=== PATIENT | female | born 1985 | race Caucasian/White ===

== ENCOUNTER → 2020-04-15 09:34 | Outpatient (REF) | payer BC, SELFPAY ==
--- NOTE | 2020-04-15 | NM_ITS ---
EXAMINATION: THYROID UPTAKE AND SCAN CLINICAL INFORMATION: Thyrotoxicosis. COMPARISON: No previous radionuclide thyroid scan is available for comparison. Thyroid ultrasound dated 02/10/2020 is available for comparison. TECHNIQUE: Following the oral administration of 287 microcuries of I-123 sodium iodide, thyroid uptake was performed and expressed as a percentage of the administrated dose. Gamma scintillation camera images of the thyroid in the anterior and right and left anterior oblique views were obtained using a pinhole collimator following the administration of 10 mCi Tc-99m pertechnetate. FINDINGS: The uptake is 83.8% at 4 hours and 45.1% at 23 hours. The radioiodine uptake is markedly elevated. The higher uptake at 4 hours versus 23 hours is evidence of very rapid turnover of radioiodine in the thyroid gland. The radiopertechnetate thyroid scintigram demonstrates the thyroid gland to be mildly enlarged approximately 1 1/2 times normal in size. There is very homogeneous distribution of activity within the gland. The trapping function is markedly increased diffusely. No focal abnormalities are present. A single anterior radioiodine image obtained at the time of the 24-hour uptake measurement is similar to the radio pertechnetate image. The thyroid ultrasound dated 02/10/2020 showed a similar sized thyroid gland with increased vascularity but no nodules. IMPRESSION: Mildly enlarged diffuse toxic goiter of Graves' disease. The radioiodine uptake is markedly elevated and shows evidence of very rapid turnover of iodine in the thyroid gland. No nodules are visualized.
== END ==
LOC: HO.NUCMED 09:34
PROVIDERS: PCP Physician Assistant; Visit Provider Internal Medicine
DX: E05.90 Thyrotoxicosis, unspecified without thyrotoxic crisis or storm (principal)
CPT/HCPCS: 78014; A9512; A9516

== ENCOUNTER 2020-05-03 14:44 | Outpatient (REF) | payer BC, SELFPAY ==
[2020-05-03 16:03] LABS: Hematocrit 36.6 % (37-47); Hemoglobin 11.4 g/dl (12.0-16.0); Mean Corpuscular HGB Conc 31.1 g/dl (31.0-35.0); Mean Corpuscular Hemoglobin 24.3 pg (27.0-33.0); Mean Platelet Volume 11.6 fL (9.4-12.3); Platelet Count 299 X10*3/uL (160-400); Red Blood Count 4.69 X10*6/uL (4.20-5.50); Red Cell Distribution Width 12.5 % (11.0-16.0); White Blood Count 5.4 X10*3/uL (4.8-10.8)
[2020-05-03 16:28] LABS: Anion Gap 13 (12-20); Blood Urea Nitrogen 9 mg/dL (9-16); Calcium 8.9 mg/dL (8.4-10.2); Carbon Dioxide 24 mmol/L (22-29); Chloride 107 mmol/L (96-108); Estimated Glomerular Filt Rate > 60; Glucose Random 123 mg/dL (60-115); Iron 62 mcg/dL (30-160); Magnesium 1.8 mg/dL (1.6-2.6); Percent Iron Saturation 22 % (15-50); Potassium 4.3 mmol/l (3.3-5.1); Sodium 140 mmol/L (135-145); Total Iron Binding Capacity 276 mcg/dL (228-428); Unsaturated Iron Binding 214 ug/dL
[2020-05-03 16:39] LABS: Free T4 (Free Thyroxine) 2.27 ng/dL (0.71-1.85)
[2020-05-04 11:21] LABS: Triiodothyronine T3 Total 395 ng/dL (76-181)
== END 2020-05-03 14:45 | disposition home or self-care (01) ==
LOC: HO.LAB 14:44
PROVIDERS: PCP Physician Assistant; Referring Provider Physician Assistant; Visit Provider Internal Medicine
DX: E05.00 Thyrotoxicosis with diffuse goiter without thyrotoxic crisis or storm (principal); M79.10 Myalgia, unspecified site
CPT/HCPCS: 36415; 80048; 82550; 83540; 83735; 84439; 84480; 85027

== ENCOUNTER 2020-05-24 13:59 | Outpatient (REF) | payer BC, SELFPAY ==
[2020-05-24 15:42] LABS: Free T4 (Free Thyroxine) 0.88 ng/dL (0.71-1.85)
[2020-05-25 07:37] LABS: Triiodothyronine T3 Total 244 ng/dL (76-181)
== END 2020-05-24 14:00 | disposition home or self-care (01) ==
LOC: HO.LAB 13:59
PROVIDERS: PCP Physician Assistant; Visit Provider Internal Medicine
DX: E05.00 Thyrotoxicosis with diffuse goiter without thyrotoxic crisis or storm (principal)
CPT/HCPCS: 84439; 84480

== ENCOUNTER → 2020-06-03 10:21 | Outpatient (BNVA) | payer BC, SELFPAY | PROVIDERS: PCP Physician Assistant; Referring Provider Physician Assistant; Visit Provider Internal Medicine | DX: Z13.89 Encounter for screening for other disorder (principal) ==

== ENCOUNTER 2020-06-23 09:48 | Outpatient (REF) | payer BC, SELFPAY ==
[2020-06-23 11:51] LABS: Free T4 (Free Thyroxine) 0.53 ng/dL (0.71-1.85)
[2020-06-24 13:12] LABS: Triiodothyronine T3 Total 163 ng/dL (76-181)
== END 2020-06-23 09:49 | disposition home or self-care (01) ==
LOC: HO.LAB 09:48
PROVIDERS: PCP Physician Assistant; Visit Provider Internal Medicine
DX: E05.00 Thyrotoxicosis with diffuse goiter without thyrotoxic crisis or storm (principal)
CPT/HCPCS: 84439; 84480

== ENCOUNTER 2020-07-15 12:14 | Outpatient (REF) | payer BC, SELFPAY ==
[2020-07-15 13:56] LABS: Free T4 (Free Thyroxine) < 0.40 ng/dL (0.71-1.85); Thyroid Stimulating Hormone 0.01 uIU/mL (0.32-4.0)
[2020-07-16 07:26] LABS: Triiodothyronine T3 Total 77 ng/dL (76-181)
== END 2020-07-15 12:15 | disposition home or self-care (01) ==
LOC: HO.LAB 12:14
PROVIDERS: PCP Physician Assistant; Visit Provider Internal Medicine
DX: E05.00 Thyrotoxicosis with diffuse goiter without thyrotoxic crisis or storm (principal); E04.9 Nontoxic goiter, unspecified; E55.9 Vitamin D deficiency, unspecified
CPT/HCPCS: 84439; 84443; 84480

== ENCOUNTER 2020-07-23 10:15 | Outpatient (REF) | payer BC, SELFPAY ==
[2020-07-23 12:41] LABS: Free T4 (Free Thyroxine) < 0.40 ng/dL (0.71-1.85)
[2020-07-25 01:52] LABS: Triiodothyronine T3 Total 83 ng/dL (76-181)
== END 2020-07-23 10:16 | disposition home or self-care (01) ==
LOC: HO.LAB 10:15
PROVIDERS: PCP Physician Assistant; Visit Provider Internal Medicine
DX: E05.00 Thyrotoxicosis with diffuse goiter without thyrotoxic crisis or storm (principal)
CPT/HCPCS: 36415; 84439; 84480

== ENCOUNTER → 2020-07-28 10:00 | Outpatient (BNVA) | payer BC, SELFPAY | PROVIDERS: PCP Physician Assistant; Visit Provider Internal Medicine | DX: Z76.89 Persons encountering health services in other specified circumstances (principal) ==

== ENCOUNTER 2020-07-29 09:42 | Outpatient (REF) | payer BC, SELFPAY ==
[2020-07-29 12:14] LABS: Free T4 (Free Thyroxine) 0.48 ng/dL (0.71-1.85); Vitamin D 25-OH Total 8.5 ng/mL (>30)
[2020-07-30 05:53] LABS: Triiodothyronine T3 Total 163 ng/dL (76-181)
== END 2020-07-29 09:43 | disposition home or self-care (01) ==
LOC: HO.LAB 09:42
PROVIDERS: Absent Provider Internal Medicine; PCP Physician Assistant; Visit Provider Physician Assistant
DX: E04.9 Nontoxic goiter, unspecified (principal); E05.00 Thyrotoxicosis with diffuse goiter without thyrotoxic crisis or storm
CPT/HCPCS: 36415; 82306; 84439; 84480

== ENCOUNTER 2020-08-04 11:37 | Outpatient (REF) | payer BC, SELFPAY ==
[2020-08-04 13:58] LABS: Free T4 (Free Thyroxine) 1.18 ng/dL (0.71-1.85)
[2020-08-05 13:28] LABS: Triiodothyronine T3 Total 420 ng/dL (76-181)
== END 2020-08-04 11:38 | disposition home or self-care (01) ==
LOC: HO.LAB 11:37
PROVIDERS: PCP Physician Assistant; Visit Provider Internal Medicine
DX: E05.00 Thyrotoxicosis with diffuse goiter without thyrotoxic crisis or storm (principal)
CPT/HCPCS: 36415; 84439; 84480

== ENCOUNTER 2020-08-11 14:52 | Outpatient (REF) | payer BC, SELFPAY ==
[2020-08-11 16:11] LABS: Free T4 (Free Thyroxine) 1.42 ng/dL (0.71-1.85)
[2020-08-12 07:42] LABS: Triiodothyronine T3 Total 340 ng/dL (76-181)
== END 2020-08-11 14:53 | disposition home or self-care (01) ==
LOC: HO.LAB 14:52
PROVIDERS: PCP Physician Assistant; Visit Provider Internal Medicine
DX: E05.00 Thyrotoxicosis with diffuse goiter without thyrotoxic crisis or storm (principal)
CPT/HCPCS: 36415; 84439; 84480

== ENCOUNTER 2020-08-16 12:00 | Outpatient (REF) | payer BC, SELFPAY ==
[2020-08-16 13:39] LABS: Free T4 (Free Thyroxine) 1.88 ng/dL (0.71-1.85)
[2020-08-17 12:02] LABS: Triiodothyronine T3 Total 412 ng/dL (76-181)
== END 2020-08-16 12:01 | disposition home or self-care (01) ==
LOC: HO.LAB 12:00
PROVIDERS: PCP Physician Assistant; Visit Provider Internal Medicine
DX: E05.00 Thyrotoxicosis with diffuse goiter without thyrotoxic crisis or storm (principal)
CPT/HCPCS: 36415; 84439; 84480

== ENCOUNTER 2020-08-20 10:32 | Outpatient (REF) | payer BC, SELFPAY ==
[2020-08-20 11:37] LABS: Free T4 (Free Thyroxine) 2.16 ng/dL (0.71-1.85)
[2020-08-21 19:07] LABS: Triiodothyronine T3 Total 444 ng/dL (76-181)
== END 2020-08-20 10:33 | disposition home or self-care (01) ==
LOC: HO.LAB 10:32
PROVIDERS: PCP Physician Assistant; Visit Provider Internal Medicine
DX: E05.00 Thyrotoxicosis with diffuse goiter without thyrotoxic crisis or storm (principal)
CPT/HCPCS: 36415; 84439; 84480

== ENCOUNTER 2020-08-30 13:05 | Outpatient (REF) | payer BC, SELFPAY ==
[2020-08-30 14:36] LABS: Free T4 (Free Thyroxine) 1.78 ng/dL (0.71-1.85)
[2020-08-31 02:36] LABS: Triiodothyronine T3 Total 381 ng/dL (76-181)
== END 2020-08-30 13:06 | disposition home or self-care (01) ==
LOC: HO.LAB 13:05
PROVIDERS: PCP Physician Assistant; Visit Provider Internal Medicine
DX: E05.00 Thyrotoxicosis with diffuse goiter without thyrotoxic crisis or storm (principal)
CPT/HCPCS: 36415; 84439; 84480

== ENCOUNTER 2020-09-06 11:48 | Outpatient (REF) | payer BC, SELFPAY ==
[2020-09-06 14:03] LABS: Calcium 9.1 mg/dL (8.4-10.2)
[2020-09-06 14:29] LABS: Free T4 (Free Thyroxine) 1.48 ng/dL (0.71-1.85)
[2020-09-07 08:47] LABS: Triiodothyronine T3 Total 348 ng/dL (76-181)
== END 2020-09-06 11:49 | disposition home or self-care (01) ==
LOC: HO.LAB 11:48
PROVIDERS: Absent Provider Surgery; PCP Physician Assistant; Visit Provider Internal Medicine
DX: E05.00 Thyrotoxicosis with diffuse goiter without thyrotoxic crisis or storm (principal)
CPT/HCPCS: 36415; 82310; 84439; 84480

== ENCOUNTER 2020-09-15 14:13 | Outpatient (REF) | payer BC, SELFPAY ==
[2020-09-15 15:50] LABS: Free T4 (Free Thyroxine) 0.76 ng/dL (0.71-1.85)
[2020-09-16 06:07] LABS: Triiodothyronine T3 Total 179 ng/dL (76-181)
== END 2020-09-15 14:14 | disposition home or self-care (01) ==
LOC: HO.LAB 14:13
PROVIDERS: PCP Physician Assistant; Visit Provider Internal Medicine Endocrinology, Diabetes & Metabolism
DX: E05.00 Thyrotoxicosis with diffuse goiter without thyrotoxic crisis or storm (principal)
CPT/HCPCS: 36415; 84439; 84480

== ENCOUNTER → 2020-09-20 08:45 | Outpatient (BNVA) | payer BC, SELFPAY | PROVIDERS: PCP Physician Assistant; Visit Provider Internal Medicine ==

== ENCOUNTER 2020-09-23 14:47 | Outpatient (REF) | payer BC, SELFPAY ==
[2020-09-23 16:19] LABS: Free T4 (Free Thyroxine) 0.51 ng/dL (0.71-1.85)
[2020-09-24 09:32] LABS: Triiodothyronine T3 Total 152 ng/dL (76-181)
== END 2020-09-23 14:48 | disposition home or self-care (01) ==
LOC: HO.LAB 14:47
PROVIDERS: PCP Physician Assistant; Visit Provider Internal Medicine
DX: E05.00 Thyrotoxicosis with diffuse goiter without thyrotoxic crisis or storm (principal); E55.9 Vitamin D deficiency, unspecified
CPT/HCPCS: 36415; 84439; 84480

== ENCOUNTER 2020-10-27 06:47 | Outpatient (REF) | payer BC, SELFPAY ==
[2020-10-27 08:00] LABS: Alanine Aminotransferase 18 U/L (0-31); Albumin Level 4.3 g/dL (3.5-5.0); Alkaline Phosphatase 134 U/L (39-117); Anion Gap 12 (12-20); Aspartate Amino Transferase 19 U/L (5-31); Bilirubin Total 0.3 mg/dL (0.0-1.0); Blood Urea Nitrogen 8 mg/dL (9-16); Calcium 9.1 mg/dL (8.4-10.2); Carbon Dioxide 20 mmol/L (22-29); Chloride 110 mmol/L (96-108); Estimated Glomerular Filt Rate > 60; Glucose Random 101 mg/dL (60-115); Phosphorus 3.1 mg/dL (2.7-4.5); Potassium 4.5 mmol/L (3.3-5.1); Sodium 137 mmol/L (135-145); Total Protein 6.8 g/dL (6.5-8.0)
[2020-10-27 08:22] LABS: Free T4 (Free Thyroxine) 0.71 ng/dL (0.71-1.85); Thyroid Stimulating Hormone 0.72 uIU/mL (0.32-4.0); Vitamin D 25-OH Total 28.2 ng/mL (>30)
[2020-10-28 12:22] LABS: Calcium (PTHI) 8.9 mg/dL (8.6-10.2); PTHI 62 pg/mL (14-64)
== END 2020-10-27 06:48 | disposition home or self-care (01) ==
LOC: HO.LAB 06:47
PROVIDERS: PCP Physician Assistant; Visit Provider Internal Medicine
DX: E05.00 Thyrotoxicosis with diffuse goiter without thyrotoxic crisis or storm (principal); E89.0 Postprocedural hypothyroidism; E55.9 Vitamin D deficiency, unspecified; Z87.891 Personal history of nicotine dependence; Z79.899 Other long term (current) drug therapy
CPT/HCPCS: 36415; 80053; 82306; 83970; 84100; 84439; 84443

== ENCOUNTER 2020-12-08 07:00 | Outpatient (REF) | payer BC, SELFPAY ==
[2020-12-08 07:45] LABS: Hematocrit 40.8 % (37-47); Hemoglobin 12.6 g/dl (12.0-16.0); Mean Corpuscular HGB Conc 30.9 g/dl (31.0-35.0); Mean Corpuscular Hemoglobin 25.6 pg (27.0-33.0); Mean Corpuscular Volume 82.8 fL (80-98); Mean Platelet Volume 11.5 fL (9.4-12.3); Platelet Count 371 X10*3/uL (160-400); Red Blood Count 4.93 X10*6/uL (4.20-5.50); Red Cell Distribution Width 13.7 % (11.0-16.0); White Blood Count 6.3 X10*3/uL (4.8-10.8)
[2020-12-08 08:00] LABS: Calcium 9.1 mg/dL (8.4-10.2)
[2020-12-08 08:06] LABS: Iron 97 mcg/dL (30-160); Percent Iron Saturation 22 % (15-50); Total Iron Binding Capacity 433 mcg/dL (228-428); Unsaturated Iron Binding 336 ug/dL
[2020-12-08 08:28] LABS: Free T4 (Free Thyroxine) 0.83 ng/dL (0.71-1.85); Vitamin D 25-OH Total 30.5 ng/mL (>30)
[2020-12-08 08:29] LABS: Thyroid Stimulating Hormone 2.04 uIU/mL (0.32-4.0)
[2020-12-10 10:22] LABS: Calcium (PTHI) 9.1 mg/dL (8.6-10.2); PTHI 95 pg/mL (14-64)
== END 2020-12-08 07:01 | disposition home or self-care (01) ==
LOC: HO.LAB 07:00
PROVIDERS: Absent Provider Physician Assistant; PCP Physician Assistant; Visit Provider Internal Medicine
DX: D50.9 Iron deficiency anemia, unspecified (principal); H00.019 Hordeolum externum unspecified eye, unspecified eyelid; N92.6 Irregular menstruation, unspecified; I10 Essential (primary) hypertension; E89.0 Postprocedural hypothyroidism; E55.9 Vitamin D deficiency, unspecified
CPT/HCPCS: 36415; 82306; 82310; 83540; 83970; 84439; 84443; 85027

== ENCOUNTER → 2020-12-22 07:23 | Outpatient (BNVA) | payer BC, SELFPAY | PROVIDERS: PCP Physician Assistant; Visit Provider Internal Medicine ==

== ENCOUNTER 2021-02-02 09:37 | Outpatient (REF) | payer BC, SELFPAY ==
[2021-02-02 10:45] LABS: Albumin Level 4.5 g/dL (3.5-5.0); Calcium 9.4 mg/dL (8.4-10.2)
[2021-02-02 11:18] LABS: Thyroid Stimulating Hormone 2.15 uIU/mL (0.32-4.0)
[2021-02-02 12:12] LABS: Vitamin D 25-OH Total 35.9 ng/mL (>30)
[2021-02-03 19:45] LABS: Calcium (PTHI) 9.5 mg/dL (8.6-10.2); PTHI 76 pg/mL (14-64)
== END 2021-02-02 09:38 | disposition home or self-care (01) ==
LOC: HO.LAB 09:37
PROVIDERS: PCP Physician Assistant; Visit Provider Internal Medicine
DX: E21.3 Hyperparathyroidism, unspecified (principal); E89.0 Postprocedural hypothyroidism; E55.9 Vitamin D deficiency, unspecified
CPT/HCPCS: 36415; 82040; 82306; 82310; 83970; 84439; 84443

== ENCOUNTER → 2021-03-09 12:58 | Outpatient (BNVA) | payer OTHER, SELFPAY | PROVIDERS: PCP Physician Assistant; Visit Provider Internal Medicine ==

== ENCOUNTER 2021-04-11 14:43 | Outpatient (REF) | payer OTHER, SELFPAY ==
[2021-04-11 16:03] LABS: Hemoglobin 13.3 g/dl (12.0-16.0); Mean Corpuscular HGB Conc 32.4 g/dl (31.0-35.0); Mean Corpuscular Hemoglobin 25.8 pg (27.0-33.0); Mean Corpuscular Volume 79.5 fL (80-98); Platelet Count 277 X10*3/uL (160-400); Red Blood Count 5.16 X10*6/uL (4.20-5.50); Red Cell Distribution Width 14.6 % (11.0-16.0); White Blood Count 10.3 X10*3/uL (4.8-10.8)
[2021-04-11 16:50] LABS: TSH reflex Free T4 2.73 uIU/mL (0.32-4.0)
[2021-04-11 16:58] LABS: HCG Quantitative < 2 mIU/mL
[2021-04-12 14:59] LABS: CT PCR NOT DETECTED (Not Detect.); NG PCR NOT DETECTED (Not Detect.)
== END 2021-04-11 14:44 | disposition home or self-care (01) ==
LOC: HO.LAB 14:43
PROVIDERS: PCP Physician Assistant; Visit Provider Obstetrics & Gynecology
DX: Z01.411 Encounter for gynecological examination (general) (routine) with abnormal findings (principal); Z11.3 Encounter for screening for infections with a predominantly sexual mode of transmission; N93.9 Abnormal uterine and vaginal bleeding, unspecified
CPT/HCPCS: 36415; 84443; 84702; 85027; 87491; 87591

== ENCOUNTER 2021-04-27 14:41 | Outpatient (REF) | payer OTHER, SELFPAY ==
--- NOTE | ~2021-04-27 | US_ITS ---
EXAMINATION: US PELVIC AND TRANSVAGINAL CLINICAL INFORMATION: Abnormal uterine bleeding. LMP 04/18/2021. COMPARISON: CT abdomen/pelvis dated 07/15/2019 TECHNIQUE: Ultrasound of the pelvis is performed using both transabdominal and transvaginal transducers along with Doppler. Transvaginal imaging is performed due to inadequate visualization transabdominally. FINDINGS: Uterus: The uterus is anteverted and retroflexed and measures 8.6 x 4.9 x 5.1 cm. IUD within the endometrial cavity which obscures evaluation of the endometrium. Multiple nabothian cysts. The uterus is smooth in contour and has normal myometrial echogenicity. Right uterine body probable fibroid measuring 3 x 3 x 2.6 cm. Adnexa: Both ovaries are visualized. There is normal color-flow to the adnexa. There is no ovarian torsion. There is no pelvic ascites or fluid collection. Bilateral ovarian follicles. Right ovary measures 2.4 x 1.5 x 1.7 cm. Right ovarian volume of 3.2 mL. Left ovary measures 2.6 x 2.3 x 2.1 cm. Left ovarian volume of 6.6 mL. US/US pelvic and transvaginal IMPRESSION: 1. IUD properly located within the endometrial cavity. Endometrium not well seen. 2. Probable right uterine body fibroid measuring 3.0 cm. 3. Bilateral ovarian follicles.
== END 2021-04-27 14:42 | disposition home or self-care (01) ==
LOC: HO.US 14:41
PROVIDERS: PCP Physician Assistant; Visit Provider Obstetrics & Gynecology
DX: N93.9 Abnormal uterine and vaginal bleeding, unspecified (principal)
CPT/HCPCS: 76830; 76856

== ENCOUNTER 2021-05-05 15:10 | Outpatient (REF) | payer OTHER, SELFPAY | END 2021-05-05 15:11 | disposition home or self-care (01) | LOC: HO.LAB 15:10 | PROVIDERS: PCP Physician Assistant; Visit Provider Obstetrics & Gynecology | DX: N93.9 Abnormal uterine and vaginal bleeding, unspecified (principal) | CPT/HCPCS: 58100; 88305 ==

== ENCOUNTER 2021-05-11 15:00 | Outpatient (REF) | payer OTHER, SELFPAY | END 2021-05-11 15:01 | disposition home or self-care (01) | LOC: HO.LAB 15:00 | PROVIDERS: PCP Physician Assistant; Visit Provider Obstetrics & Gynecology | DX: N93.9 Abnormal uterine and vaginal bleeding, unspecified (principal); Z87.891 Personal history of nicotine dependence | CPT/HCPCS: 58100; 88305 ==

== ENCOUNTER → 2021-06-02 11:29 | Outpatient (BNVA) | payer OTHER, SELFPAY | PROVIDERS: PCP Physician Assistant; Visit Provider Obstetrics & Gynecology ==

== ENCOUNTER 2021-08-31 13:19 | Outpatient (REF) | payer BC, SELFPAY ==
[2021-09-01 03:31] LABS: CT PCR NOT DETECTED (Not Detect.); NG PCR NOT DETECTED (Not Detect.)
== END 2021-08-31 13:20 | disposition home or self-care (01) ==
LOC: HO.LAB 13:19
PROVIDERS: PCP Physician Assistant; Visit Provider Obstetrics & Gynecology
DX: Z30.430 Encounter for insertion of intrauterine contraceptive device (principal)
CPT/HCPCS: 58300; 58301; 87491; 87591

== ENCOUNTER 2021-08-31 13:49 | Outpatient (REF) | payer BC, SELFPAY ==
[2021-08-31 15:09] LABS: Alanine Aminotransferase 11 U/L (0-31); Albumin Level 4.7 g/dL (3.5-5.0); Alkaline Phosphatase 63 U/L (39-117); Anion Gap 13 (12-20); Aspartate Amino Transferase 17 U/L (5-31); Bilirubin Total 0.3 mg/dL (0.0-1.0); Blood Urea Nitrogen 9 mg/dL (9-16); Calcium 9.4 mg/dL (8.4-10.2); Carbon Dioxide 25 mmol/L (22-29); Chloride 104 mmol/L (96-108); Estimated Glomerular Filt Rate > 60; Glucose Random 75 mg/dL (60-115); Phosphorus 2.9 mg/dL (2.7-4.5); Sodium 138 mmol/L (135-145); Total Protein 7.5 g/dL (6.5-8.0)
[2021-08-31 15:31] LABS: Free T4 (Free Thyroxine) 0.88 ng/dL (0.71-1.85); Thyroid Stimulating Hormone 14.97 uIU/mL (0.32-4.0); Vitamin D 25-OH Total 27.1 ng/mL (>30)
[2021-09-01 15:07] LABS: Calcium (PTHI) 9.5 mg/dL (8.6-10.2); PTHI 105 pg/mL (14-64)
== END 2021-08-31 13:50 | disposition home or self-care (01) ==
LOC: HO.LAB 13:49
PROVIDERS: PCP Physician Assistant; Visit Provider Internal Medicine
DX: E89.0 Postprocedural hypothyroidism (principal); E21.3 Hyperparathyroidism, unspecified; E55.9 Vitamin D deficiency, unspecified
CPT/HCPCS: 36415; 80053; 82306; 83970; 84100; 84439; 84443

== ENCOUNTER → 2021-09-12 12:40 | Outpatient (BNVA) | payer BC, SELFPAY | PROVIDERS: PCP Physician Assistant; Visit Provider Internal Medicine ==

== ENCOUNTER → 2021-09-28 09:07 | Outpatient (BNVA) | payer BC, SELFPAY | PROVIDERS: PCP Physician Assistant; Visit Provider Obstetrics & Gynecology | DX: Z30.431 Encounter for routine checking of intrauterine contraceptive device (principal); Z87.891 Personal history of nicotine dependence | CPT/HCPCS: 99212 ==

== ENCOUNTER 2021-10-14 13:21 | Outpatient (REF) | payer BC, SELFPAY ==
[2021-10-14 14:49] LABS: Free T4 (Free Thyroxine) 1.03 ng/dL (0.71-1.85); Thyroid Stimulating Hormone 3.66 uIU/mL (0.32-4.0)
== END 2021-10-14 13:22 | disposition home or self-care (01) ==
LOC: HO.LAB 13:21
PROVIDERS: PCP Physician Assistant; Visit Provider Internal Medicine
DX: E89.0 Postprocedural hypothyroidism (principal)
CPT/HCPCS: 36415; 84439; 84443

== ENCOUNTER 2021-10-17 08:28 | Outpatient (REF) | payer BC, SELFPAY ==
[2021-10-17 09:16] LABS: Creatinine, mg/dL 35.54
[2021-10-17 13:07] LABS: Creatinine, 24Hr Urine 1.4 G/Day (1.0-2.0); Total Volume 24 Hour Urine 3950 mL
[2021-10-19 19:16] LABS: Calcium, 24 Hr Urine 336 mg/24 h; Calcium/Creatinine Ratio 224 mg/g creat (30-275)
== END 2021-10-17 08:29 | disposition home or self-care (01) ==
LOC: HO.LNP 08:28
PROVIDERS: Visit Provider Internal Medicine
DX: E21.3 Hyperparathyroidism, unspecified (principal)
CPT/HCPCS: 82340; 82570

== ENCOUNTER 2021-10-20 15:10 | Outpatient (REF) | payer BC, SELFPAY ==
--- NOTE | ~2021-10-20 | XR_ITS ---
EXAMINATION: XR HIP, RIGHT CLINICAL INFORMATION: Other unspecified enthesopathy COMPARISON: None TECHNIQUE: Two views of the right hip. FINDINGS: Bones and soft tissues are normal. No fracture. Alignment is anatomic. Hip joint space is maintained. Incidental note is made of intrauterine contraceptive device, appear in good position. XR/XR hip RT min 2V IMPRESSION: Normal right hip.
== END 2021-10-20 15:11 | disposition home or self-care (01) ==
LOC: HO.XRAY 15:10
PROVIDERS: PCP Physician Assistant; Visit Provider Physician Assistant
DX: M76.891 Other specified enthesopathies of right lower limb, excluding foot (principal)
CPT/HCPCS: 73502

== ENCOUNTER 2021-12-19 13:18 | Outpatient (REF) | payer BC, SELFPAY ==
[2021-12-19 14:13] LABS: Alanine Aminotransferase 12 U/L (0-31); Albumin Level 4.6 g/dL (3.5-5.0); Alkaline Phosphatase 55 U/L (39-117); Anion Gap 12 (12-20); Aspartate Amino Transferase 16 U/L (5-31); Bilirubin Total 0.4 mg/dL (0.0-1.0); Blood Urea Nitrogen 7 mg/dL (9-16); Calcium 9.3 mg/dL (8.4-10.2); Carbon Dioxide 25 mmol/L (22-29); Chloride 106 mmol/L (96-108); Estimated Glomerular Filt Rate > 60; Glucose Random 97 mg/dL (60-115); Phosphorus 2.6 mg/dL (2.7-4.5); Sodium 139 mmol/L (135-145); Total Protein 7.1 g/dL (6.5-8.0)
[2021-12-19 14:39] LABS: Free T4 (Free Thyroxine) 1.07 ng/dL (0.71-1.85); Thyroid Stimulating Hormone 1.08 uIU/mL (0.32-4.0); Vitamin D 25-OH Total 38.2 ng/mL (>30)
[2021-12-20 14:47] LABS: Calcium (PTHI) 9.5 mg/dL (8.6-10.2); PTHI 99 pg/mL (16-77)
== END 2021-12-19 13:19 | disposition home or self-care (01) ==
LOC: HO.LAB 13:18
PROVIDERS: PCP Physician Assistant; Visit Provider Internal Medicine
DX: E21.3 Hyperparathyroidism, unspecified (principal); E55.9 Vitamin D deficiency, unspecified; E03.9 Hypothyroidism, unspecified
CPT/HCPCS: 36415; 80053; 82306; 83970; 84100; 84439; 84443

== ENCOUNTER 2021-12-23 15:00 | Outpatient (REF) | payer BC, SELFPAY | END 2021-12-23 15:01 | disposition home or self-care (01) | LOC: HO.LAB 15:00 | PROVIDERS: PCP Physician Assistant; Visit Provider Internal Medicine | DX: Z13.89 Encounter for screening for other disorder (principal) ==

== ENCOUNTER 2021-12-26 14:18 | Outpatient (REF) | payer BC, SELFPAY ==
[2021-12-26 16:08] LABS: Creatinine, mg/dL 42.47
[2021-12-26 17:52] LABS: Creatinine, 24Hr Urine 1.5 G/Day (1.0-2.0); Total Volume 24 Hour Urine 3600 mL
[2021-12-27 17:22] LABS: Calcium, 24 Hr Urine 227 mg/24 h; Calcium/Creatinine Ratio 140 mg/g creat (30-275); Creatinine 24Hr Urine 1.62 g/24 h (0.50-2.15)
== END 2021-12-26 14:19 | disposition home or self-care (01) ==
LOC: HO.LNP 14:18
PROVIDERS: Visit Provider Internal Medicine
DX: E21.3 Hyperparathyroidism, unspecified (principal)
CPT/HCPCS: 82340; 82570

== ENCOUNTER 2021-12-30 14:00 | Outpatient (RCR) | payer BC, SELFPAY ==
--- NOTE | 2021-11-08 17:43 | MHC.PT.EP ---
[facility] [place] Office [place] Office [place] Office [address] V[address] [phone] F: [phone] F: [phone] F: [phone] F: [phone] Physical Therapy Plan of Care Date of Evaluation: Date of Surgery: N/A Diagnosis: Assessment: pt presents to physical therapy with pain, decreased range of motion, decreased strength, impaired functional mobility, impaired postural awareness, and gait deviations. pt is a good candidate for skilled PT due to age, potential remediation of impairments, typical disease/condition progression and prognosis, comorbidities, and motivation. pt would benefit from tailored strengthening and stretching exercise program, functional training, gait training, postural re-training, neuromuscular re-education, modalities as needed for pain, equipment safety demonstration. Frequency and Duration: The patient will be seen 2x/wk for 4 wks Short Term Goals: pt will be I w/ HEP to promote self-management of condition. pt will demo proper sitting posture w/ lumbar roll to promote self-management of condition. Senior Examiner Goals: pt will report a statistically significant improvement in self-reported outcome measure, LEFI, to promote return to PLOF. pt will improve B hip abduction strength to 5/5 to remediate Trendelenburg on even ground. Treatment Plan: Modalities to reduce pain, spasms and effusion. Manual therapy to restore motion and function. Therapeutic exercise to improve strength and flexibility. Neuromuscular re-education for posture and balance. Therapeutic activities to return to functional activities of daily living. Electronically signed by: Brielle Lee PT, DPT Please sign and return to therapist. Thank you for your referral.
--- NOTE | 2021-12-30 15:10 | MHC.PT.DC ---
[facility] [place] Office [place] Office [place] Office [address] Mckenzie Vickers [address] [phone] F: [phone] F: [phone] F: [phone] F: [phone] Physical Therapy Discharge Report Diagnosis: other specified enthesopathies of unspecified lower extremity Date of Surgery: N/A Date of Evaluation: 11/08/21 Date of Discharge: 12/30/21 Treatments to Date: 8 Cancellations to Date: 4 No Shows to Date: 0 Discharge Status: Improved Function Independent with HEP Discharge Summary: The patient overall reported a significant improvement in her pain. 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 We reviewed using a lumbar roll to promote neutral lumbopelvic alignment. She is independent with her home exercise program. She is discharged from this physical therapy plan of care to her home exercise program at this time. Electronically signed by: Brielle Lee PT, DPT Please sign and return to therapist. Thank you for your referral.
== END 2021-12-30 15:10 | disposition home or self-care (01) ==
LOC: HO.PT 14:00
PROVIDERS: PCP Physician Assistant; Visit Provider Physician Assistant
DX: M76.899 Other specified enthesopathies of unspecified lower limb, excluding foot (principal)
CPT/HCPCS: 97110; 97112; 97140; 97162

== ENCOUNTER 2022-02-22 10:00 | Outpatient (REF) | payer BC, SELFPAY ==
[2022-02-22 12:18] LABS: Alanine Aminotransferase 11 U/L (0-31); Alkaline Phosphatase 60 U/L (39-117); Anion Gap 16 (12-20); Aspartate Amino Transferase 14 U/L (5-31); Bilirubin Total 0.4 mg/dL (0.0-1.0); Blood Urea Nitrogen 7 mg/dL (9-16); Calcium 9.7 mg/dL (8.4-10.2); Carbon Dioxide 25 mmol/L (22-29); Chloride 104 mmol/L (96-108); Estimated Glomerular Filt Rate > 60; Glucose Random 64 mg/dL (60-115); Phosphorus 3.1 mg/dL (2.7-4.5); Potassium 4.5 mmol/L (3.3-5.1); Sodium 140 mmol/L (135-145); Total Protein 7.7 g/dL (6.5-8.0)
[2022-02-22 12:40] LABS: Free T4 (Free Thyroxine) 1.14 ng/dL (0.71-1.85); Thyroid Stimulating Hormone 2.85 uIU/mL (0.32-4.0)
[2022-02-23 11:32] LABS: Calcium (PTHI) 9.5 mg/dL (8.6-10.2); PTHI 44 pg/mL (16-77)
[2022-02-26 15:57] LABS: Vitamin D 25-OH, D2 <4 ng/mL; Vitamin D 25-OH, D3 36 ng/mL; Vitamin D 25-OH, Total 36 ng/mL (30-100)
== END 2022-02-22 10:01 | disposition home or self-care (01) ==
LOC: HO.LAB 10:00
PROVIDERS: PCP Physician Assistant; Visit Provider Internal Medicine
DX: E89.0 Postprocedural hypothyroidism (principal); E55.9 Vitamin D deficiency, unspecified; E21.3 Hyperparathyroidism, unspecified
CPT/HCPCS: 36415; 80053; 82306; 83970; 84100; 84439; 84443

== ENCOUNTER 2022-03-16 13:08 | Outpatient (REF) | payer BC, SELFPAY ==
--- NOTE | ~2022-03-16 | XR_ITS ---
EXAMINATION: XR KNEE, LEFT CLINICAL INFORMATION: Chronic instability. COMPARISON: None TECHNIQUE: AP, lateral, tunnel, and sunrise views of the left knee. FINDINGS: Bones and soft tissues are normal. No fracture or joint effusion. Alignment is anatomic. Joint spaces are well maintained. No abnormal soft tissue calcification. XR/XR knee LT 2V IMPRESSION: Normal left knee.
== END 2022-03-16 13:09 | disposition home or self-care (01) ==
LOC: HO.XRAY 13:08
PROVIDERS: PCP Physician Assistant; Visit Provider Physician Assistant
DX: M23.52 Chronic instability of knee, left knee (principal)
CPT/HCPCS: 73560

== ENCOUNTER 2022-04-13 15:03 | Outpatient (REF) | payer BC, SELFPAY | END 2022-04-13 15:04 | disposition home or self-care (01) | LOC: HO.LNP 15:03 | PROVIDERS: Visit Provider Obstetrics & Gynecology | DX: Z13.89 Encounter for screening for other disorder (principal) ==

== ENCOUNTER 2022-04-13 15:14 | Outpatient (REF) | payer BC, SELFPAY ==
[2022-04-13 15:37] LABS: Hematocrit 45.7 % (37.0-47.0); Hemoglobin 15.2 g/dl (12.0-16.0); Mean Corpuscular HGB Conc 33.3 g/dl (31.0-35.0); Mean Corpuscular Hemoglobin 28.6 pg (27.0-33.0); Mean Corpuscular Volume 85.9 fL (80.0-98.0); Mean Platelet Volume 11.7 fL (9.4-12.3); Platelet Count 283 X10*3/uL (160-400); Red Blood Count 5.32 X10*6/uL (4.20-5.50); Red Cell Distribution Width 12.3 % (11.0-16.0); White Blood Count 9.6 X10*3/uL (4.8-10.8)
[2022-04-13 16:18] LABS: HCG Quantitative < 2 mIU/mL; TSH reflex Free T4 1.66 uIU/mL (0.32-4.0)
[2022-04-14 09:18] LABS: CT PCR NOT DETECTED (Not Detect.); NG PCR NOT DETECTED (Not Detect.)
== END 2022-04-13 15:15 | disposition home or self-care (01) ==
LOC: HO.LAB 15:14
PROVIDERS: Visit Provider Obstetrics & Gynecology
DX: N93.9 Abnormal uterine and vaginal bleeding, unspecified (principal)
CPT/HCPCS: 84443; 84702; 85027; 87491; 87591

== ENCOUNTER 2022-05-12 12:52 | Outpatient (REF) | payer BC, SELFPAY ==
--- NOTE | ~2022-05-12 | US_ITS ---
EXAMINATION: US PELVIS CLINICAL INFORMATION: Abnormal uterine and vaginal bleeding. COMPARISON: Ultrasound dated 04/27/2021 TECHNIQUE: Ultrasound of the pelvis is performed using both transabdominal and transvaginal transducers along with Doppler. Transvaginal imaging is performed due to inadequate visualization transabdominally. FINDINGS: Uterus: The uterus is anteverted and measures 7.9 x 5.9 x 4.4 cm. The double wall endometrial thickness is intrauterine device is seen centered within the endometrial canal. The uterus is smooth in contour and has normal myometrial echogenicity. Uterine body fibroid measures 2.5 cm, decreased from prior study. Adnexa: Both ovaries are visualized. There is normal color flow to the adnexa. There is no ovarian torsion. Small volume free fluid. Right ovary measures 3.2 x 2.7 x 2.9 cm. Left ovary measures 3.0 x 2.2 x 2.1 cm. US/US pelvic and transvaginal IMPRESSION: 1. Intrauterine device is centered within the endometrial canal. 2. Uterine body fibroid measures 2.5 cm, decreased from prior study.
== END 2022-05-12 12:53 | disposition home or self-care (01) ==
LOC: HO.US 12:52
PROVIDERS: Visit Provider Obstetrics & Gynecology
DX: N93.9 Abnormal uterine and vaginal bleeding, unspecified (principal)
CPT/HCPCS: 76830; 76856

== ENCOUNTER 2022-05-24 08:38 | Outpatient (REF) | payer BC, SELFPAY | END 2022-05-24 08:39 | disposition home or self-care (01) | LOC: HO.LNP 08:38 | PROVIDERS: PCP Physician Assistant; Visit Provider Obstetrics & Gynecology | DX: N93.9 Abnormal uterine and vaginal bleeding, unspecified (principal) | CPT/HCPCS: 58100; 88305 ==

== ENCOUNTER 2022-06-14 19:22 | Outpatient (REF) | payer BC, SELFPAY ==
--- NOTE | ~2022-06-14 | MR_ITS ---
EXAMINATION: MR KNEE WITHOUT CONTRAST, LEFT CLINICAL INFORMATION: Medial/anterior left knee pain. COMPARISON: Left knee radiographs dated 03/16/2022. TECHNIQUE: MRI of the knee without contrast was performed using routine sequences on a high-field scanner. FINDINGS: MENISCI: MEDIAL MENISCUS: Intact. LATERAL MENISCUS: Intact. LIGAMENTS: CRUCIATE: Slight attenuation and increased T2 signal associated with the anterior cruciate ligament, which could represent normal variation versus a grade 1 sprain. No full-thickness ligament tear. Intact posterior cruciate ligament. COLLATERAL: Intact. EXTENSOR MECHANISM: Intact. ARTICULAR CARTILAGE/BONE: PATELLOFEMORAL COMPARTMENT: Normal. MEDIAL COMPARTMENT: Normal. LATERAL COMPARTMENT: Normal. JOINT FLUID AND BURSAE: Trace joint fluid and trace Mantilla's cyst. MR/MR knee LT wo con IMPRESSION: 1. Slight attenuation and increased T2 signal associated with the anterior cruciate ligament, which could represent normal variation versus a grade 1 sprain. No full-thickness ligament tear. 2. No meniscal tear. 3. Trace joint fluid and trace Mantilla's cyst.
== END 2022-06-14 19:23 | disposition home or self-care (01) ==
LOC: HO.MRI 19:22
PROVIDERS: Visit Provider Physician Assistant
DX: S83.207A Unspecified tear of unspecified meniscus, current injury, left knee, initial encounter (principal); M23.52 Chronic instability of knee, left knee
CPT/HCPCS: 73721

== ENCOUNTER → 2022-07-05 09:44 | Outpatient (BNVA) | payer BC, SELFPAY | PROVIDERS: PCP Physician Assistant; Visit Provider Physician Assistant | DX: M17.12 Unilateral primary osteoarthritis, left knee (principal) | CPT/HCPCS: 20610; J1040 ==

== ENCOUNTER 2022-07-11 14:00 | Outpatient (RCR) | payer BC, SELFPAY ==
--- NOTE | 2022-04-19 17:10 | MHC.PT.EP ---
[facility] [place] [facility] [place] Office [address] Mckenzie Vickers [address] [phone] F: [phone] F: [phone] F: [phone] F: [phone] Physical Therapy Plan of Care Date of Evaluation: Date of Surgery: Diagnosis: L knee pain and instability (presents as MCL sprain/strain) Assessment: Patient is a pleasant 37 y.o female who presents to PT with Dx of L knee pain and instability, normal x-ray of L knee, no other imaging. Her symptoms present as MCL sprain/strain, less likely meniscal injury. She has pain, limited ROM and weakness L quads, glutes which may be causing strain to medial knee. She reports difficulty with squats, prolonged walking, sleeping, getting in/out of work truck and doing heavier activities in her home. She will benefit from skilled PT to restore to PLOF. Frequency and Duration: The patient will be seen 1-2x/week for 4 weeks Short Term Goals: 2 weeks Patient demonstrates independence and consistency with HEP to self manage symptoms, reduce pain 2/10. Patient presents with increased L knee extension 0 degrees to restore to normalized gait pattern. Gate Person Goals: 4 weeks Patient presents with increased L knee flexion and extension strength 5/5 to be able to squat. Patient presents with increased L knee flexion AROM 135 degrees to be able to get in/out of work truck. Treatment Plan: Modalities to reduce pain, spasms and effusion. Manual therapy to restore motion and function. Therapeutic exercise to improve strength and flexibility. Neuromuscular re-education for posture and balance. Therapeutic activities to return to functional activities of daily living. Electronically signed by: Tracey Flores, PT, DPT Please sign and return to therapist. Thank you for your referral.
--- NOTE | 2022-08-02 16:54 | MHC.PT.DC ---
[facility] [place] Office [place] Office [place] Office [address] Mckenzie Vickers [address] [phone] F: [phone] F: [phone] F: [phone] F: [phone] Physical Therapy Discharge Report Diagnosis: L knee pain and instability (presents as MCL sprain/strain) Date of Surgery: Date of Evaluation: 04/19/22 Date of Discharge: 08/02/22 Treatments to Date: 11 Cancellations to Date: 3 No Shows to Date: 0 Discharge Status: Independent with HEP Recommend MD Follow-up Discharge Summary: The patient overall reports minimal improvement of left knee pain since starting physical therapy. She has attended approximately two months worth of visits with little change. She has tried therapeutic exercise, therapeutic activities, iontophoresis, ultrasound, and kinesiotaping treatments. She is independent with her home exercise program at this time. She is being discharged to her home exercise program at this time. I will keep her chart open for three weeks. If she has any major changes in that time she can call to schedule another appointment. Given her thyroid diagnosis I recommended she see pain management provider to determine if there are any other alternative treatment options for her. Electronically signed by: Brielle Lee PT, DPT Please sign and return to therapist. Thank you for your referral.
== END 2022-08-02 16:54 | disposition home or self-care (01) ==
LOC: HO.PT 14:00
PROVIDERS: PCP Physician Assistant; Visit Provider Physician Assistant
DX: M23.52 Chronic instability of knee, left knee (principal)
CPT/HCPCS: 97033; 97035; 97110; 97112; 97140; 97161; 97164; 97530

== ENCOUNTER 2022-07-21 11:28 | Outpatient (REF) | payer BC, SELFPAY ==
[2022-07-21 13:09] LABS: Free T4 (Free Thyroxine) 0.98 ng/dL (0.71-1.85); Thyroid Stimulating Hormone 4.23 uIU/mL (0.32-4.0)
[2022-07-22 17:45] LABS: Triiodothyronine T3 Total 77 ng/dL (76-181)
== END 2022-07-21 11:29 | disposition home or self-care (01) ==
LOC: HO.LAB 11:28
PROVIDERS: PCP Physician Assistant; Visit Provider Internal Medicine
DX: E89.0 Postprocedural hypothyroidism (principal)
CPT/HCPCS: 36415; 84439; 84443; 84480

== ENCOUNTER → 2022-07-24 14:31 | Outpatient (BNVA) | payer BC, SELFPAY | PROVIDERS: PCP Physician Assistant; Visit Provider Internal Medicine | DX: Z13.89 Encounter for screening for other disorder (principal) ==

== ENCOUNTER 2022-09-04 11:11 | Outpatient (REF) | payer BC, SELFPAY ==
[2022-09-04 12:36] LABS: Free T4 (Free Thyroxine) 1.52 ng/dL (0.71-1.85); Thyroid Stimulating Hormone 0.38 uIU/mL (0.32-4.0)
== END 2022-09-04 11:12 | disposition home or self-care (01) ==
LOC: HO.LAB 11:11
PROVIDERS: PCP Physician Assistant; Visit Provider Internal Medicine
DX: E03.9 Hypothyroidism, unspecified (principal)
CPT/HCPCS: 36415; 84439; 84443

== ENCOUNTER → 2022-09-06 08:31 | Outpatient (BNVA) | payer BC, SELFPAY | PROVIDERS: PCP Physician Assistant; Visit Provider Internal Medicine | DX: Z13.89 Encounter for screening for other disorder (principal) ==

== ENCOUNTER → 2022-09-18 12:53 | Outpatient (BNVA) | payer BC, SELFPAY | PROVIDERS: PCP Physician Assistant; Visit Provider Physician Assistant | DX: Z13.89 Encounter for screening for other disorder (principal) ==

== ENCOUNTER → 2022-10-16 14:52 | Outpatient (BNVA) | payer BC, SELFPAY | PROVIDERS: PCP Physician Assistant; Visit Provider Nurse Practitioner Family | DX: Z13.89 Encounter for screening for other disorder (principal) ==

== ENCOUNTER 2022-10-25 11:36 | Outpatient (REF) | payer BC, SELFPAY ==
[2022-10-25 13:55] LABS: Free T4 (Free Thyroxine) 1.16 ng/dL (0.71-1.85)
== END 2022-10-25 11:37 | disposition home or self-care (01) ==
LOC: HO.LAB 11:36
PROVIDERS: PCP Physician Assistant; Visit Provider Internal Medicine
DX: E89.0 Postprocedural hypothyroidism (principal)
CPT/HCPCS: 36415; 84439; 84443

== ENCOUNTER → 2022-11-13 12:42 | Outpatient (BNVA) | payer BC, SELFPAY | PROVIDERS: PCP Physician Assistant; Visit Provider Internal Medicine | DX: M25.562 Pain in left knee (principal) | CPT/HCPCS: 64447; 64450; J2795 ==

== ENCOUNTER → 2022-11-17 09:16 | Outpatient (BNVA) | payer BC, SELFPAY | PROVIDERS: PCP Physician Assistant; Visit Provider Nurse Practitioner Family ==

== ENCOUNTER 2022-12-13 05:47 | Outpatient (REF) | payer BC, SELFPAY | END 2022-12-13 05:48 | disposition home or self-care (01) | LOC: CF 05:47 | PROVIDERS: Visit Provider Internal Medicine | DX: M17.12 Unilateral primary osteoarthritis, left knee (principal) | CPT/HCPCS: 64447 ==

== ENCOUNTER → 2022-12-15 09:08 | Outpatient (BNVA) | payer BC, SELFPAY | PROVIDERS: PCP Physician Assistant; Visit Provider Nurse Practitioner Family ==

== ENCOUNTER → 2022-12-18 13:40 | Outpatient (BNVA) | payer BC, SELFPAY | PROVIDERS: PCP Physician Assistant; Visit Provider Internal Medicine ==

== ENCOUNTER 2023-03-20 14:38 | Outpatient (AMB) | payer BC, SELFPAY ==
--- NOTE | 2023-03-20 15:00 | MHC.PC.OV ---
Vital Signs 03/20/23 15:01 Height 4 ft 11 in Weight 150 lb 6 oz BMI 30.4 BP 110/68 Blood Pressure Location Lt brachial Position Sitting Pulse 93 Pulse Source Pulse Oximeter Pulse Oximetry (%) 95 Oxygen Delivery Method Room Air Intake Visit Reasons: PE Intake Note: Patient is here today for a physical. 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: Not Required per policy Accompanied by: Self / Same As Patient Allergies levothyroxine sodium [From Levoxyl] Allergy (Severe, Verified 03/20/23 15:37) Eye Swelling acetaminophen [From TYLENOL] Allergy (Unknown, Verified 03/20/23 15:37) GETS A HEADACHE levothyroxine Adverse Reaction (Intermediate, Verified 03/20/23 15:37) Hives Medication List - Last Reconciled 03/20/23 by Oskar Garcia PA-C cholecalciferol (vitamin D3) 50 mcg PO DAILY diclofenac potassium 50 mg PO BID PRN 60 days levonorgestrel (Mirena) intrauterine Synthroid (levothyroxine) 1 tab 6 days per week, half a tab 1 day per week orally daily; 30 days NS varenicline 1 mg PO BID 28 days Tobacco use date assessed: 03/20/23 Dental Screening Dental Screen Date: 03/20/23 Did you have a dental visit in the last 12 months?: No Did you have a dental problem in the last 6 months where you did not have access to dental care?: No Was dental information given to patient?: No HPI PE HPI Details Patient is a 38-y ear-old female her e today for follow -up visit.? The peter liao has a past m edical history sig nificant for Grave s disease, anxiety , vitamin-D defici ency. Left knee p atellar osteoarthr itis: Has seen mu ltiple specialists and has extensive workup including MRI which did show small effusion an d patellar arthrit is. Has gotten in jections which wer e not helpful. Guido s seen crime specialist and was advised on conser vative treatment a nd physical therap y. Tobacco depend ency: Unfortunatel y has started smok ing again and is i nterested in quitt ing again, has bee n successful with generic Chantix wh ich will restart.? She has tried Wel lbutrin was not he lpful in reducing her smoking.? She has tried nicotine patches though se ems to allergy-- > contact dermatiti s \ Hypothyroidis m: Patient has bee n seen by Endocrin ology and endocrin e surgeon and had a total thyroidect eve.? Most recent TSH has normalized since the use of Synthroid.? Seem t o have an allergy to generic levothy roxine. *Marisela zamudio has been rece ntly found to have traumatic glaucom a due to her thyro id eye disease. . . Vaccines:? 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 Storm Wesley, Denise Lim, Hi Askew and colleagues, with an educational dori from [employer]. Review of Systems Const Denies body aches, Denies chills, Denies excessive sweating, Denies fatigue, Denies fever(s) and Denies headache(s) Eyes Reports blurry vision and Reports exophthalmos ENT Denies dysphagia, Denies vertigo, Denies dizziness, Denies headache(s), Denies hearing loss and Denies tinnitus Card Denies chest pain, Denies chest pain with activity, Denies syncope, Denies irregular heart rhythm and Denies dyspnea Resp Denies chest congestion, Denies cough, Denies hemoptysis, Denies dyspnea and Denies wheezing GI Denies abdominal pain, Denies melena, Denies hematochezia, Denies coffee ground emesis, Denies dysphagia, Denies diarrhea, Denies nausea and Denies vomiting Denies urinary frequency, Denies dysuria, Denies urinary hesitancy and Denies urinary urgency Musc Details: + left knee and hip pain. Reports arthralgias, Denies limited range of motion, Denies muscle cramps and Denies muscle weakness Skin/Breast Denies rash and Denies skin ulcer Neuro Denies Abnormal speech present, Denies confusion, Denies vertigo, Denies dizziness, Denies syncope, Denies headache(s), Denies memory loss and Denies seizure-like activity Psych Denies anxiety, Denies confusion, Denies depression, Denies memory loss, Denies panic attacks and Denies paranoia Endo Denies excessive sweating, Denies fatigue, Denies flushing, Denies polydipsia and Denies polyuria Aller/Immun Denies wheezing Physical exam (Primary Care) Vital Signs: Last Vital Signs Pulse 93 03/20/23 15:01 BP 110/68 03/20/23 15:01 Pulse Ox 95 03/20/23 15:01 Oxygen Delivery Method Room Air 03/20/23 15:01 BMI result Body Mass Index 30.4 BMI Assessment/Plan discussion: High Tobacco/Smoking Status: Tobacco use Status Tobacco use date assessed 03/20/23 03/20/23 15:10 Patient Tobacco Use Status Current everyday Tobacco 03/20/23 15:10 Tobacco use type Cigarette 03/20/23 15:10 e-Cigarette/Vaping Use Never Used 09/05/23 15:10 Thrive Assessment: Date of Thrive Assessment Date Thrive assessed 10/09/22 03/20/23 15:10 Const Other: Obese General: cooperative, comfortable, no acute distress, alert and awake; No confusion Orientation/consciousness: oriented to person, oriented to place, patient oriented x3 and No confusion HENMT Head: Yes normocephalic Ears: external ears normal and TM's normal bilaterally Face and sinus: No sinus tenderness Mouth: Normal oral and palatal mucosa present and tongue normal Teeth and gingiva: dentition normal and gingiva normal Throat: Yes posterior oropharynx normal, Yes tonsils normal and Yes uvula midline Eyes Conjunctivae: conjunctivae normal Sclerae: sclerae normal Pupils: Equal, round and reactive pupils present EOM: EOMs intact bilaterally Direct Ophthalmoscopy: No no photophobia Neck Neck: Yes no lymphadenopathy, No tender and Yes no JVD Thyroid: Thyroid normal Carotids: no bruits Chest Chest palpation & inspection: no tenderness Resp Effort & Inspection: normal respiratory effort, no audible wheezes, not labored and no stridor Auscultation: no crackles, no rales, no rhonchi and no wheezes Cardio Jugular venous distension: no JVD Rate: regular rate, not bradycardic and not tachycardic Rhythm: regular rhythm Bruits: no carotid bruits Peripheral pulses: Peripheral pulses 2+ throughout GI Inspection: Yes normal to inspection, No abdominal wall ecchymosis and No visible herniation Palpation (GI): Soft to palpation, nontender, no guarding, not rigid and No hepatosplenomegaly present Auscultation: normoactive bowel sounds General: Yes no CVA tenderness Back/Spine/Pelvis Back: no CVA tenderness and No back tenderness Cervical Spine: cervical ROM normal Thoracic/Lumbar Spine: thoracic and lumbar spine normal to inspection, straight leg raise negative bilaterally, No thoraco-lumbar ROM limited and No lumbar spinal tenderness Skin Lesions: no lesions Rashes: no rashes Wounds: no wounds Neuro General: oriented to person, oriented to place, patient oriented x3, CN's II-XI intact bilaterally and No confusion Cranial nerves: Yes Equal, round and reactive pupils present and Yes Normal accommodation reflex present Cognition (Neuro): normal cognition Speech: No Abnormal speech present Gait exam (Neuro): Normal gait present Motor exam (neuro): 5/5 motor strength present throughout Extrem Right upper extremity: full ROM; no cyanosis Left upper extremity: full ROM; no cyanosis Right lower extremity: no edema Left lower extremity: no edema Psych Appearance: grossly normal Mental Status: mental status grossly normal Affect: normal affect Attitude: cooperative Thought process: Normal thought process present Assessment and Plan Assessment & Plan (1) Annual physical exam: Code(s): Z00.00 - Encounter for general adult medical examination without abnormal findings (2) Tobacco dependence: Code(s): F17.200 - Nicotine dependence, unspecified, uncomplicated Plan: She unfortunately started smoking in. Had few months being smoke free using Chantix and would like to restart this medication and continue it use. (3) Hypothyroid: Code(s): E03.9 - Hypothyroidism, unspecified Qualifiers: Hypothyroidism type: unspecified Qualified Code(s): E03.9 - Hypothyroidism, unspecified Plan: Continues to follow [place] [facility]. His status post thyroidectomy. Most recent TSH has been stable. (4) Patellofemoral arthritis of left knee: Code(s): M17.12 - Unilateral primary osteoarthritis, left knee Plan: Patient reports her knee pain is still present though is much better. Did see pain management and orthopedic whom told she had arthritis and small patellar effusion. 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 Followed by Ophthalmology here in [place]. (6) Obese: Code(s): E66.9 - Obesity, unspecified Qualifiers: Obesity type: due to excess calories Obesity classification: adult class 1 (BMI 30 - 34.9) Serious obesity comorbidity presence: without serious comorbidity Body mass index: BMI 30.0-30.9 Qualified Code(s): E66.09 - Other obesity due to excess calories; Z68.30 - Body mass index [BMI] 30.0-30.9, adult Plan: Patient does understand BMI slightly over 30 will continue working on better eating habits and trying to be more physically active to reduce her weight. 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
[2023-03-20 15:01] VITALS: BP 110/68; PULSE 93; O2SAT 95; BMI 30.4
== END 2023-03-20 15:53 | disposition home or self-care (01) ==
PROVIDERS: PCP Physician Assistant; Visit Provider Physician Assistant
DX: Z00.00 Encounter for general adult medical examination without abnormal findings (principal); F17.210 Nicotine dependence, cigarettes, uncomplicated; Z68.30 Body mass index [BMI] 30.0-30.9, adult; E03.9 Hypothyroidism, unspecified; E66.09 Other obesity due to excess calories; M17.12 Unilateral primary osteoarthritis, left knee; H40.3 Glaucoma secondary to eye trauma
CPT/HCPCS: 99395

== ENCOUNTER 2023-04-11 07:02 | Outpatient (REF) | payer BC, SELFPAY ==
[2023-04-11 08:31] LABS: Thyroid Stimulating Hormone 1.67 uIU/mL (0.32-4.0)
== END 2023-04-11 07:03 | disposition home or self-care (01) ==
LOC: HO.LAB 07:02
PROVIDERS: PCP Physician Assistant; Visit Provider Internal Medicine
DX: E03.9 Hypothyroidism, unspecified (principal)
CPT/HCPCS: 36415; 84439; 84443

== ENCOUNTER 2023-04-18 08:23 | Outpatient (AMB) | payer BC, SELFPAY ==
[2023-04-18 08:26] VITALS: BP 116/64; BMI 30.3
--- NOTE | 2023-04-18 08:26 | A.OFFVIS_ITS ---
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 No complaints. Last Pap/HPV was negative in 04/04 [facility] Medical History Thyroid eye disease Migraines Hyperparathyroidism Postoperative hypothyroidism Vitamin D deficiency Goiter Benign breast cyst in female Surgical History Hx of thyroidectomy Hx of tonsillectomy Family History Father No problems noted. 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 Cognitive needs: No Hearing needs: No Vision needs: No Female Reproductive History Menstrual Age of Menarche: 12 Date of last menstrual period: 04/03/23 Total pregnancies: 2 Number of Living Children: 0 Ab induced: 1 Ab spontaneous: 1 Date of last pap smear: 03/18/20 Review of Systems Const All systems reviewed & are unremarkable except as noted in HPI and below Card Reports as per HPI Resp Reports as per HPI GI Reports as per HPI and Reports no additional complaints Reports as per HPI Physical Exam Vital Signs: Last Vital Signs BP 116/64 04/18/23 08:26 BMI result Body Mass Index 30.3 Const General: cooperative, healthy appearing and comfortable Chest Chest palpation & inspection: normal inspection of the chest and normal palpation of entire chest wall Breast/axilla inspection: normal inspection of the breasts and normal inspection of the axillae Breast/axilla palpation: normal palpation of the breasts, normal palpation of the axillae and no axillary lymphadenopathy Resp Effort & Inspection: normal respiratory effort Auscultation: clear to auscultation bilaterally Percussion: percussion normal Cardio Palpation: normal PMI Rate: regular rate Rhythm: regular rhythm Heart sounds: no murmurs and no rubs Peripheral pulses: Peripheral pulses 2+ throughout GI Inspection: Yes normal to inspection Palpation (GI): Soft to palpation, nontender, no guarding, not rigid and No hepatosplenomegaly present Percussion: Yes normal to percussion Auscultation: normal bowel sounds Rectal Exam - Female: deferred General: Yes bladder normal to palpation External Female Exam: No lesion Speculum Exam - Vagina: normal appearance of the vagina, normal palpation, normal vaginal discharge and not erythematous Speculum Exam - Cervix: normal appearance of the cervix, normal palpation and Other cervical findings present (IUD thread in place) Bimanual exam- vagina & uterus: normal bimanual exam, normal palpation, uterine size normal, bladder normal to palpation, consistency normal and normal palpation Bimanual Exam- Adnexa, other: normal adnexae, no masses and no tenderness Assessment & Plan Assessment & Plan (1) Well woman exam: Code(s): Z01.419 - Encounter for gynecological examination (general) (routine) without abnormal findings Plan: Cotesting not indicated this. Counseled the patient about the recommended dietary allowance of 1000 mg of Calcium & 600 IU of vitamin D. The patient was instructed to perform monthly self-breast exams and to schedule an annual exam in a year; All questions answered and the patient verbalized understanding. Instructed the patient to schedule annual exam in a year Coding Level of Care Code Est Pt Prev Care 18-39y(29353) Diagnoses Well woman exam Z01.419
== END 2023-04-18 08:43 | disposition home or self-care (01) ==
PROVIDERS: PCP Physician Assistant; Visit Provider Obstetrics & Gynecology
DX: Z01.419 Encounter for gynecological examination (general) (routine) without abnormal findings (principal)
CPT/HCPCS: 99395

== ENCOUNTER → 2023-04-18 08:23 | Outpatient (BNVA) | payer BC, SELFPAY | PROVIDERS: Visit Provider Obstetrics & Gynecology ==

== ENCOUNTER 2023-04-19 15:53 | Outpatient (AMB) | payer BC, SELFPAY ==
[2023-04-19 15:56] VITALS: BP 102/80; PULSE 81; BMI 31.0
--- NOTE | 2023-04-19 15:56 | MHC.OFFVIS ---
Intake Vital Signs 04/19/23 15:56 Height 4 ft 11 in Weight 153 lb 10.595 oz BMI 31.0 BP 102/80 Blood Pressure Location Rt brachial Position Sitting Pulse 81 Pulse Source Pulse Oximeter Intake Visit Reasons: F/U Postoperative hypothyroidism-LVM Intake Note: New patient to Dr. Jerez present today for Postoperative Hypothyroidism follow up visit. Previously followed by Dr. Shepherd. 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 Patient last saw Dr. Shepherd on 12/18/2022 She noted an unexplained weight loss of 30 lbs in 1 month in mid 2019. She then noted the development of a large goiter. She presented to her PCP who ordered TFTs and a thyroid US. TSH was suppressed to <0.01 01/30/2020. The thyroid US revealed a large hypervascular heterogenous gland. She was started on Propranolol and asked to see Endocrinology. After our initial visit she underwent a full biochemical evaluation which revealed hyperthyroidism with TSH completely suppressed, and both FT4 and TT3 elevated. She had a thyroid uptake and scan 04/15/2020 which revealed increased uptake of 83.8% at 4 hours, and 45.1% at 23 hours. Uptake was markedly increased diffusely. Trapping was also markedly increased diffusely. This was consistent with Grave's disease. She was treated with Methimazole, and then underwent a total thyroidectomy with Dr. Josiah Kohler 09/28/19. Official surgical path was benign. She was started on levothyroxine postoperatively and remains on brand name synthroid 125 mcg PO 6 days per week with a half a tab 1 day per week. TSH is at goal. She reports feeling well today and has no complaints. She does mention swelling and burning in her L eye which she feels is related to the levoxyl. PTH levels were elevated. Her 24 hour urine calcium was also elevated, but this was a very large collection of almost 4 liters. She reported having minimal dairy and calcium containing foods in her diet. She increased her dietary calcium to 4 servings per day and labs normalized. She does have a history of thyroid eye disease. She has developed glaucoma and is following with both Dr. Saldana and Dr. Howard currently. Labs: Laboratory Tests 09/04/22 10/25/22 11:21 11:50 TSH 0.38 1.30 Free T4 1.52 1.16 [facility] Medical History Thyroid eye disease Migraines Hyperparathyroidism Postoperative hypothyroidism Vitamin D deficiency Goiter Benign breast cyst in female Surgical History Hx of thyroidectomy Hx of tonsillectomy Family History Father No problems noted. 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 She is currently replaced on Synthroid 125 mcg 6 days a week and half a pill 1 day a week. She appears to be clinically biochemically euthyroid. Plan is to continue the current management. At this point, patient returned to the care of her primary care provider. She returned back to endocrinology as needed Coding Level of Care Code Est Pt Level 3 (43173) Diagnoses Postoperative hypothyroidism E89.0
== END 2023-04-19 16:17 | disposition home or self-care (01) ==
PROVIDERS: PCP Physician Assistant; Visit Provider Internal Medicine Endocrinology, Diabetes & Metabolism
DX: E89.0 Postprocedural hypothyroidism (principal)
CPT/HCPCS: 99213

== ENCOUNTER → 2023-04-19 15:53 | Outpatient (BNVA) | payer BC, SELFPAY | PROVIDERS: PCP Physician Assistant; Visit Provider Internal Medicine Endocrinology, Diabetes & Metabolism ==

== ENCOUNTER 2023-09-17 13:52 | Outpatient (AMB) | payer BC, SELFPAY ==
[2023-09-17 13:56] VITALS: BP 126/74; PULSE 76; O2SAT 97; BMI 30.5
--- NOTE | 2023-09-17 13:56 | A.OFFPC_ITS ---
Vital Signs 09/17/23 13:56 Height 4 ft 11 in Weight 151 lb 4 oz BMI 30.5 BP 126/74 Blood Pressure Location Lt brachial Position Sitting Pulse 76 Pulse Source Pulse Oximeter Pulse Oximetry (%) 97 Oxygen Delivery Method Room Air Intake Visit Reasons: 6mon F/U hypothyroid and smoking. Cigar Packer Required: No Accompanied by: Self / Same As Patient Allergies levothyroxine sodium [From Levoxyl] Allergy (Severe, Verified 09/17/23 14:05) Eye Swelling acetaminophen [From TYLENOL] Allergy (Unknown, Verified 09/17/23 14:05) GETS A HEADACHE levothyroxine Adverse Reaction (Intermediate, Verified 09/17/23 14:05) Hives Medication List - Last Reconciled 09/17/23 by Oskar Garcia PA-C cholecalciferol (vitamin D3) 50 mcg PO DAILY levonorgestrel (Mirena) intrauterine Synthroid (levothyroxine) 1 tab 6 days per week, half a tab 1 day per week orally daily; 30 days NS varenicline 1 mg PO BID 90 days Tobacco use date assessed: 09/17/23 Dental Screening Dental Screen Date: 09/17/23 Did you have a dental visit in the last 12 months?: Yes Did you have a dental problem in the last 6 months where you did not have access to dental care?: No Was dental information given to patient?: Patient has dentist HPI 6mon F/U hypothyroid and smoking. HPI Details Patient is a 38-year-old female here today for follow-up visit.? The patient has a past medical history significant for Graves disease, anxiety, vitamin-D deficiency. Tobacco dependency: Unfortunately has started smoking again and is interested in quitting again, has been successful with generic Chantix has been very helpful on helping her quit smoking. Unfortunately had to be off of it for a few weeks due to insurance coverage. \ Hypothyroidism: Patient has been seen by Endocrinology and endocrine surgeon and had a total thyroidectomy.? Most recent TSH has normalized since the use of Synthroid.? Seem to have an allergy to generic levothyroxine. 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 [facility] Medical History Thyroid eye disease Migraines Hyperparathyroidism Postoperative hypothyroidism Vitamin D deficiency Goiter Benign breast cyst in female Surgical History Hx of thyroidectomy Hx of tonsillectomy Family History Father No problems noted. 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 1. Little interest or pleasure in doing things: more than half the days 2. Feeling down, depressed, or hopeless: not at all 3. Trouble falling or staying asleep, or sleeping too much: more than half the days 4. Feeling tired or having little energy: nearly every day 5. Poor appetite or overeating: not at all 6. Feeling bad about yourself - or that you are a failure or have let yourself or your family down: not at all 7. Trouble concentrating on things, such as reading the newspaper or watching television: not at all 8. Moving or speaking so slowly that other people could have noticed. Or the opposite - being so fidgety or restless that you have been moving around a lot more than usual: not at all 9. Thoughts that you would be better off or of hurting yourself in some way: not at all Total score: 7 Depression Screening Interpretation: Positive Depression Screening Follow-up: Existing condition and Declines treatment Depression Screening Done: Yes 49718 - PHQ-9 Billing: Yes Source: Developed by Drs. Storm Wesley, DeniseHi Hernandez and colleagues, with an educational dori from [employer]. Thrive Questionnaire Date Thrive assessed: 09/17/23 I am a: Patient What is your living situation today?: I have a steady place to live Within the past 12 months, did the food you bought not last and you didn't have the money to get more?: Never true Within the past 12 months, did you worry whether your food would run out before you got money to buy more?: Never true Do you have trouble paying for medicines?: No Do you have trouble getting transportation to medical appointments?: No Do you have trouble paying your heating and electricity bill?: No Do you have trouble taking care of your child, family member or friend?: No Do you have trouble with day-to-day activities such as bathing, preparing meals, shopping, managing finances, etc.?: No Are you currently unemployed and looking for a job?: No Are you interested in more education?: No Please select the resources that you would like help with: None Currently or been in a relationship where the following occur: no concerns reported THRIVE Score: 0 AUDIT C Alcohol Use Questionnaire (AUDIT-C) 1. How often do you have a drink containing alcohol?: Monthly or less 2. How many drinks containing alcohol do you have on a typical day when you are drinking?: 1 or 2 3. How often do you have six or more drinks on one occasion?: Never Total Score: 1 GRACY-7 AMB Questionnaire GRACY-7 Date GRACY - 7 assessed: 09/17/23 Feeling nervous, anxious, or on edge: 2 = More than half the days Not being able to stop or control worryin = Several days Worrying too much about different things: 1 = Several days Trouble relaxin = More than half the days Being so restless that it is hard to sit still: 2 = More than half the days Becoming easily annoyed or irritable: 3 = Nearly every day Feeling afraid as if something awful might happen: 0 = Not at all Total GRACY-7 score (0-4 normal; 5-9 mild; 10-14 moderate; 15-21 severe): 11 Source: Developed by Denise Tesfaye Kurt Kroenke and colleagues, with an educational dori from [employer]. GRACY-7 Assessment Billing GRACY-7 Assessment Tool: GRACY-7 Assessment 32844 Review of Systems Const Denies headache(s) Eyes Denies loss of vision ENT Denies vertigo, Denies dizziness, Denies headache(s) and Denies sore throat Card Denies chest pain, Denies leg edema and Denies lightheadedness Resp Denies cough, Denies hemoptysis and Denies wheezing GI Denies abdominal pain, Denies melena, Denies constipation, Denies diarrhea and Denies vomiting Denies urinary frequency, Denies dysuria and Denies urinary urgency Musc Denies arthralgias, Denies joint swelling, Denies numbness and Denies tingling Neuro Denies Abnormal speech present, Denies behavioral changes, Denies vertigo, Denies dizziness, Denies headache(s), Denies loss of vision, Denies memory loss, Denies numbness and Denies tingling Psych Denies anxiety, Denies behavioral changes, Denies depression, Denies memory loss and Denies panic attacks Daryl/Lymph Denies easy bleeding and Denies easy bruising Aller/Immun Denies wheezing Physical exam (Primary Care) Vital Signs: Last Vital Signs Pulse 76 09/17/23 13:56 BP 126/74 09/17/23 13:56 Pulse Ox 97 09/17/23 13:56 Oxygen Delivery Method Room Air 09/17/23 13:56 BMI result Body Mass Index 30.5 Tobacco/Smoking Status: Tobacco use Status Tobacco use date assessed 09/17/23 09/17/23 14:04 Patient Tobacco Use Status Current everyday Tobacco 09/17/23 13:58 Tobacco use type Cigarette 09/17/23 13:58 e-Cigarette/Vaping Use Never Used 09/17/23 13:58 Are you ready to quit: Yes Tobacco cessation counseling provided: Yes Items discussed: Nicotine replacement and QuitWorks Relapse Prevention: discussed the importance of a supportive environment, discussed negative mood or depression after quitting and discussed dietary, exercise and/or lifestyle changes Number of minutes spent counselin CPT code: 51823 - 4-10 Minutes PHQ-9: PHQ-9 Score PHQ-9: Total score 7 09/17/23 14:20 Depression Screening Interpretation: Positive Depression Screening Follow-up: Existing condition and Declines treatment Thrive Assessment: Date of Thrive Assessment Date Thrive assessed 09/17/23 09/17/23 14:04 Currently or been in a relationship where the following occur: no concerns reported Const General: healthy appearing, no acute distress, alert and awake Nutritional Appearance: well nourished Orientation/consciousness: oriented to person, oriented to place and oriented to time HENMT Ears: TM's normal bilaterally General nose exam: Normal nasal mucous membranes and turbinates present Eyes Conjunctivae: conjunctivae normal Sclerae: sclerae normal Pupils: Equal, round and reactive pupils present Neck Neck: Yes no lymphadenopathy and Yes no JVD Thyroid: Thyroid normal Carotids: no bruits Resp Effort & Inspection: normal respiratory effort and not tachypneic Auscultation: no crackles, no rales, no rhonchi and no wheezes Cardio Rate: regular rate Rhythm: regular rhythm Heart sounds: no murmurs and normal S1 and S2 GI Palpation (GI): Soft to palpation, nontender, no hepatomegaly and no splenomegaly Auscultation: normal bowel sounds Skin General skin exam: no rashes or lesions noted and dry skin Neuro General: oriented to person, oriented to place and oriented to time Cranial nerves: Yes Equal, round and reactive pupils present Speech: No Abnormal speech present Gait exam (Neuro): Normal gait present Motor exam (neuro): no tremor noted Extrem Right upper extremity: full ROM Left upper extremity: full ROM Right lower extremity: full ROM; no edema Left lower extremity: full ROM; no edema Psych Mental Status: mental status grossly normal Speech and movement: Normal speech and movement present Affect: normal affect Attitude: cooperative Thought process: Normal thought process present Assessment and Plan Assessment & Plan (1) Tobacco dependence: Code(s): F17.200 - Nicotine dependence, unspecified, uncomplicated Plan: She unfortunately started smoking again, has been using Chantix which has been helpful to help her quit smoking.. She will continue (2) Hypothyroid: Code(s): E03.9 - Hypothyroidism, unspecified Qualifiers: Hypothyroidism type: unspecified Qualified Code(s): E03.9 - Hypothyroidism, unspecified Plan: Continues to follow [place] end[facility]ology. His status post thyroidectomy. Most recent TSH has been stable. 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 Otherwise has 2020 vision. Followed by Ophthalmology here in [place]. (4) GRACY (generalized anxiety disorder): Code(s): F41.1 - Generalized anxiety disorder Plan: Patient's GRACY-7 score positive for anxiety which has been existing condition for her. Not interested in starting any new medication at this time. She attributes her anxiety and depression to the long winter months. (5) MDD (major depressive disorder), recurrent episode, moderate: Code(s): F33.1 - Major depressive disorder, recurrent, moderate Plan: Patient's PHQ9 score positive for depression which has been existing condition for her. Worsens during the winter months. Advised on sad lamp (6) Hyperparathyroidism: Code(s): E21.3 - Hyperparathyroidism, unspecified Plan: Has hyperparathyroidism. Has been stable, will continue to follow calcium. Will continue vitamin-D supplementation Orders: Orders TSH reflex Free T4 Today E03.9 - Hypothyroidism, unspecified Parathyroid Hormone Intact Today E21.3 - Hyperparathyroidism, unspecified Comprehensive [place]. Panel Fast Today Z13.1 - Encounter for screening for diabetes mellitus Coding Level of Care Code Est Pt Level 4 (46471) Diagnoses Tobacco dependence F17.200 Hypothyroidism, unspecified type E03.9 Hypothyroidism type: unspecified Glaucoma of both eyes associated with ocular trauma, moderate stage H40.33X2 Glaucoma stage: moderate stage GRACY (generalized anxiety disorder) F41.1 MDD (major depressive disorder), recurrent episode, moderate F33.1 Hyperparathyroidism E21.3 Additional Codes GRACY-7 Assessment Billing - GRACY-7 Assessment Tool: GRACY-7 Assessment [id number] ([id number]) Vital Signs *Quality* - CPT code: 68589 - 4-10 Minutes ([id number])
== END 2023-09-17 16:33 | disposition home or self-care (01) ==
PROVIDERS: PCP Physician Assistant; Visit Provider Physician Assistant
DX: E21.3 Hyperparathyroidism, unspecified (principal); F17.210 Nicotine dependence, cigarettes, uncomplicated; F33.1 Major depressive disorder, recurrent, moderate; E03.9 Hypothyroidism, unspecified; H40.3 Glaucoma secondary to eye trauma; F41.1 Generalized anxiety disorder
CPT/HCPCS: 99214; 99406

== ENCOUNTER 2023-09-26 06:27 | Outpatient (REF) | payer BC, SELFPAY ==
[2023-09-26 07:47] LABS: Alanine Aminotransferase 13 U/L (0-31); Albumin Level 4.3 g/dL (3.5-5.0); Alkaline Phosphatase 55 U/L (39-117); Anion Gap 9 (12-20); Aspartate Amino Transferase 13 U/L (5-31); Bilirubin Total 0.2 mg/dL (0.0-1.0); Blood Urea Nitrogen 11 mg/dL (9-16); Calcium 8.9 mg/dL (8.4-10.2); Carbon Dioxide 27 mmol/L (22-29); Chloride 108 mmol/L (96-108); Estimated Glomerular Filt Rate > 60; Glucose Fasting 85 mg/dL (60-99); Potassium 4.1 mmol/L (3.3-5.1); Sodium 140 mmol/L (135-145); Total Protein 6.8 g/dL (6.5-8.0)
[2023-09-26 07:48] LABS: Parathyroid Hormone Intact 99.1 pg/mL (8.7-77.1)
[2023-09-26 08:03] LABS: TSH reflex Free T4 2.19 uIU/mL (0.32-4.0)
== END 2023-09-26 06:28 | disposition home or self-care (01) ==
LOC: HO.LAB 06:27
PROVIDERS: PCP Physician Assistant; Visit Provider Physician Assistant
DX: Z13.1 Encounter for screening for diabetes mellitus (principal); E03.9 Hypothyroidism, unspecified; E21.3 Hyperparathyroidism, unspecified
CPT/HCPCS: 36415; 80053; 83970; 84443

== ENCOUNTER 2024-03-26 10:22 | Outpatient (AMB) | payer OTHER, SELFPAY ==
--- NOTE | 2024-03-26 10:42 | MHC.PC.OV ---
Vital Signs 03/26/24 10:54 Height 4 ft 11 in Weight 149 lb 2 oz BMI 30.1 BP 112/82 Blood Pressure Location Lt brachial Position Sitting Pulse 82 Pulse Source Pulse Oximeter Pulse Oximetry (%) 97 Intake Visit Reasons: Annual Exam Intake Note: Patient is here today for a physical. 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 Accompanied by: Self / Same As Patient Allergies levothyroxine sodium [From Levoxyl] Allergy (Severe, Verified 03/26/24 11:05) Eye Swelling acetaminophen [From TYLENOL] Allergy (Unknown, Verified 03/26/24 11:05) GETS A HEADACHE levothyroxine Adverse Reaction (Intermediate, Verified 03/26/24 11:05) Hives Medication List - Last Reconciled 03/26/24 by Oskar Garcia PA-C cholecalciferol (vitamin D3) 50 mcg PO DAILY levonorgestrel (Mirena) intrauterine sumatriptan succinate take 1 tab at onset of headache; if no relief, may repeat 1 tab after at least 2 hrs; max = 2 tabs/24 hrs PO 30 days Synthroid (levothyroxine) 1 tab 6 days per week, half a tab 1 day per week orally daily; 30 days NS Tobacco use date assessed: 03/26/24 Dental Screening Dental Screen Date: 09/17/23 HPI Annual Exam HPI Details Patient is a 39-year-old female here today for follow-up visit.? The patient has a past medical history significant for Graves disease, anxiety, vitamin-D deficiency. Concern--> she reports having some issues with being over emotional and over stimulated in large crowds. She is speaking with a mental health therapist at this time. She is interested in starting medication to help regulate her emotions. Tobacco dependency: Unfortunately has started smoking again and is interested in quitting again, has been successful with generic Chantix has been very helpful on helping her quit smoking. Unfortunately had to be off of it for a few weeks due to insurance coverage. \ Hypothyroidism: Patient has been seen by Endocrinology and endocrine surgeon and had a total thyroidectomy.? Most recent TSH has normalized since the use of Synthroid.? Seem to have an allergy to generic levothyroxine. 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 Vaccines:? Up-to-date with Pfizer vaccine, up-to-date with tetanus, Cocnsidering flu .. Mammo: Willing to do mammogram .. ?PHYSICAL THERAPY NURSE: does see a PHYSICAL THERAPY NURSE and gets PAPs Laboratory Tests 10/25/22 04/11/23 09/26/23 11:50 07:13 06:36 Creatinine 0.71 TSH 1.30 1.67 2.19 PTH Intact 99.1 H [facility] Medical History Migraines Thyroid eye disease Hyperparathyroidism Postoperative hypothyroidism Vitamin D deficiency Goiter Benign breast cyst in female Surgical History Hx of thyroidectomy Hx of tonsillectomy Family History Father No problems noted. Mother Cancer Substance use disorder Paternal Grandmother CVD (cardiovascular disease) Brother Substance use disorder Social History (Updated 03/26/24 @ 11:12 by Oskar Garcia PA-C) Household Members: Spouse Household Members Other:: Housing: House Alcohol intake: current Alcohol intake frequency: holidays/special occasions only Patient Tobacco Use Status: Current everyday Tobacco user Tobacco use type: Cigarette Cigarette Packs Per Day: 0.5 Cigarettes Per Day: 10 e-Cigarette/Vaping Use: Never Used Second Hand Smoke Exposure: Yes Advance Directives Date on File: 04/15/20 service: No Current occupational status: employed 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 1. Little interest or pleasure in doing things: more than half the days 2. Feeling down, depressed, or hopeless: not at all 3. Trouble falling or staying asleep, or sleeping too much: more than half the days 4. Feeling tired or having little energy: nearly every day 5. Poor appetite or overeating: nearly every day 6. Feeling bad about yourself - or that you are a failure or have let yourself or your family down: not at all 7. Trouble concentrating on things, such as reading the newspaper or watching television: not at all 8. Moving or speaking so slowly that other people could have noticed. Or the opposite - being so fidgety or restless that you have been moving around a lot more than usual: not at all 9. Thoughts that you would be better off or of hurting yourself in some way: not at all Total score: 10 Depression Screening Interpretation: Positive Depression Screening Follow-up: Existing condition, In treatment and New Medication prescribed Depression Screening Done: Yes 21835 - PHQ-9 Billing: Yes Source: Developed by Drs. Storm Wesley, Denise Lim, Hi Askew and colleagues, with an educational dori from [employer]. Thrive Questionnaire Date Thrive assessed: 03/26/24 I am a: Patient What is your living situation today?: I have a steady place to live Within the past 12 months, did the food you bought not last and you didn't have the money to get more?: Never true Within the past 12 months, did you worry whether your food would run out before you got money to buy more?: Never true Do you have trouble paying for medicines?: Yes Do you have trouble getting transportation to medical appointments?: No Do you have trouble paying your heating and electricity bill?: No Do you have trouble taking care of your child, family member or friend?: No Do you have trouble with day-to-day activities such as bathing, preparing meals, shopping, managing finances, etc.?: No Are you currently unemployed and looking for a job?: No Are you interested in more education?: No Please select the resources that you would like help with: None Currently or been in a relationship where the following occur: No concerns reported THRIVE Score: 0 AUDIT C Alcohol Use Questionnaire (AUDIT-C) 1. How often do you have a drink containing alcohol?: Monthly or less 2. How many drinks containing alcohol do you have on a typical day when you are drinking?: 1 or 2 3. How often do you have six or more drinks on one occasion?: Never Total Score: 1 GRACY-7 AMB Questionnaire GRACY-7 Date GRACY - 7 assessed: 03/26/24 Feeling nervous, anxious, or on edge: 3 = Nearly every day Not being able to stop or control worryin = Several days Worrying too much about different things: 0 = Not at all Trouble relaxin = More than half the days Being so restless that it is hard to sit still: 0 = Not at all Becoming easily annoyed or irritable: 2 = More than half the days Feeling afraid as if something awful might happen: 0 = Not at all Total GRACY-7 score (0-4 normal; 5-9 mild; 10-14 moderate; 15-21 severe): 8 Source: Developed by Drs. Storm Wesley, Denise Lim, Hi Askew and colleagues, with an educational dori from [employer]. GRACY-7 Assessment Billing GRACY-7 Assessment Tool: GRACY-7 Assessment 73016 Review of Systems Const Denies body aches, Denies chills, Denies excessive sweating, Denies fatigue, Denies fever(s) and Denies headache(s) Eyes Denies blurry vision ENT Denies dysphagia, Denies vertigo, Denies dizziness, Denies headache(s), Denies hearing loss and Denies tinnitus Card Denies chest pain, Denies chest pain with activity, Denies syncope, Denies irregular heart rhythm and Denies dyspnea Resp Denies chest congestion, Denies cough, Denies hemoptysis, Denies dyspnea and Denies wheezing GI Denies abdominal pain, Denies melena, Denies hematochezia, Denies coffee ground emesis, Denies dysphagia, Denies diarrhea, Denies nausea and Denies vomiting Denies urinary frequency, Denies dysuria, Denies urinary hesitancy and Denies urinary urgency Musc Denies arthralgias, Denies limited range of motion, Denies muscle cramps and Denies muscle weakness Skin/Breast Denies rash and Denies skin ulcer Neuro Denies Abnormal speech present, Denies confusion, Denies vertigo, Denies dizziness, Denies syncope, Denies headache(s), Denies memory loss and Denies seizure-like activity Psych Denies anxiety, Denies confusion, Denies depression, Denies memory loss, Denies panic attacks and Denies paranoia Endo Denies excessive sweating, Denies fatigue, Denies flushing, Denies polydipsia and Denies polyuria Aller/Immun Denies wheezing Physical exam (Primary Care) Vital Signs: Last Vital Signs Pulse 82 03/26/24 10:54 BP 112/82 03/26/24 10:54 Pulse Ox 97 03/26/24 10:54 BMI result Body Mass Index 30.1 Tobacco/Smoking Status: Tobacco use Status Tobacco use date assessed 03/26/24 03/26/24 10:43 Patient Tobacco Use Status Current everyday Tobacco 03/26/24 10:43 Tobacco use type Cigarette 03/26/24 10:43 e-Cigarette/Vaping Use Never Used 03/26/24 10:43 PHQ-9: PHQ-9 Score PHQ-9: Total score 10 03/26/24 11:01 Depression Screening Interpretation: Positive Depression Screening Follow-up: Existing condition, In treatment and New Medication prescribed Thrive Assessment: Date of Thrive Assessment Date Thrive assessed 03/26/24 03/26/24 10:43 Currently or been in a relationship where the following occur: No concerns reported Const General: cooperative, comfortable, no acute distress, alert and awake; No confusion Orientation/consciousness: oriented to person, oriented to place, patient oriented x3 and No confusion HENMT Head: Yes normocephalic Ears: external ears normal and TM's normal bilaterally Face and sinus: No sinus tenderness Mouth: Normal oral and palatal mucosa present and tongue normal Teeth and gingiva: dentition normal and gingiva normal Throat: Yes posterior oropharynx normal, Yes tonsils normal and Yes uvula midline Eyes Conjunctivae: conjunctivae normal Sclerae: sclerae normal Pupils: Equal, round and reactive pupils present EOM: EOMs intact bilaterally Direct Ophthalmoscopy: No no photophobia Neck Neck: Yes no lymphadenopathy, No tender and Yes no JVD Thyroid: Thyroid normal Carotids: no bruits Chest Chest palpation & inspection: no tenderness Resp Effort & Inspection: normal respiratory effort, no audible wheezes, not labored and no stridor Auscultation: no crackles, no rales, no rhonchi and no wheezes Cardio Jugular venous distension: no JVD Rate: regular rate, not bradycardic and not tachycardic Rhythm: regular rhythm Bruits: no carotid bruits Peripheral pulses: Peripheral pulses 2+ throughout GI Inspection: Yes normal to inspection, No abdominal wall ecchymosis and No visible herniation Palpation (GI): Soft to palpation, nontender, no guarding, not rigid and No hepatosplenomegaly present Auscultation: normoactive bowel sounds General: Yes no CVA tenderness Back/Spine/Pelvis Back: no CVA tenderness and No back tenderness Cervical Spine: cervical ROM normal Thoracic/Lumbar Spine: thoracic and lumbar spine normal to inspection, straight leg raise negative bilaterally, No thoraco-lumbar ROM limited and No lumbar spinal tenderness Skin Lesions: no lesions Rashes: no rashes Wounds: no wounds Neuro General: oriented to person, oriented to place, patient oriented x3, CN's II-XI intact bilaterally and No confusion Cranial nerves: Yes Equal, round and reactive pupils present and Yes Normal accommodation reflex present Cognition (Neuro): normal cognition Speech: No Abnormal speech present Gait exam (Neuro): Normal gait present Motor exam (neuro): 5/5 motor strength present throughout Extrem Right upper extremity: full ROM; no cyanosis Left upper extremity: full ROM; no cyanosis Right lower extremity: no edema Left lower extremity: no edema Psych Appearance: grossly normal Mental Status: mental status grossly normal Affect: normal affect Attitude: cooperative Thought process: Normal thought process present Assessment and Plan Assessment & Plan (1) Annual physical exam: Code(s): Z00.00 - Encounter for general adult medical examination without abnormal findings (2) Tobacco dependence: Code(s): F17.200 - Nicotine dependence, unspecified, uncomplicated Plan: She unfortunately started smoking again, has been using Chantix which has been helpful to help her quit smoking.. She will continue (3) Hypothyroid: Code(s): E03.9 - Hypothyroidism, unspecified Qualifiers: Hypothyroidism type: unspecified Qualified Code(s): E03.9 - Hypothyroidism, unspecified Plan: Continues to follow [facility] endocrinology. His status post thyroidectomy. Most recent TSH has been stable. 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 Otherwise has 2020 vision. Followed by Ophthalmology here in [facility]. (5) GRACY (generalized anxiety disorder): Code(s): F41.1 - Generalized anxiety disorder Plan: Patient's GRACY-7 score positive for anxiety which has been existing condition for her. She reports she has over emotional and does get overstimulated and emotional very easily. She is interested in starting medication at this point. Of note does have a mental health therapist she follows. (6) MDD (major depressive disorder), recurrent episode, moderate: Code(s): F33.1 - Major depressive disorder, recurrent, moderate Plan: Patient's PHQ-9 score positive for depression which has been existing condition for her. As above, patient willing to start SSRI therapy to help regulate her emotions. Will follow-up in 6 weeks to evaluate the effectiveness of the medication. (7) Hyperparathyroidism: Code(s): E21.3 - Hyperparathyroidism, unspecified Plan: Has hyperparathyroidism. Has been stable, will continue to follow calcium. Will continue vitamin-D supplementation (8) Breast cancer screening: Code(s): Z12.39 - Encounter for other screening for malignant neoplasm of breast Qualifiers: Breast cancer screening modality: mammogram Qualified Code(s): Z12.31 - Encounter for screening mammogram for malignant neoplasm of breast Orders: Orders TSH reflex Free T4 Today E03.9 - Hypothyroidism, unspecified Parathyroid Hormone Intact Today E21.3 - Hyperparathyroidism, unspecified Complete Blood Count no Diff Today Z13.1 - Encounter for screening for diabetes mellitus MM screening mammo BI Today Z12.31 - Encounter for screening mammogram for malignant neoplasm of breast, Z12.39 - Encounter for other screening for malignant neoplasm of breast Comprehensive [place]. Panel Fast Today Z13.1 - Encounter for screening for diabetes mellitus Medications: New sertraline 50 mg PO DAILY 30 days 30 tabs 1RF F41.1 - Generalized anxiety disorder Coding Level of Care Code Est Pt Prev Care 40-64y(96248) Diagnoses Annual physical exam Z00.00 Tobacco dependence F17.200 Hypothyroidism, unspecified type E03.9 Hypothyroidism type: unspecified Glaucoma of both eyes associated with ocular trauma, moderate stage H40.33X2 Glaucoma stage: moderate stage GRACY (generalized anxiety disorder) F41.1 MDD (major depressive disorder), recurrent episode, moderate F33.1 Hyperparathyroidism E21.3 Encounter for screening mammogram for malignant neoplasm of breast Z12.31 Breast cancer screening modality: mammogram Additional Codes GRACY-7 Assessment Billing - GRACY-7 Assessment Tool: GRACY-7 Assessment 43218 ([id number])
[2024-03-26 10:54] VITALS: BP 112/82; PULSE 82; O2SAT 97; BMI 30.1
== END 2024-03-26 11:29 | disposition home or self-care (01) ==
PROVIDERS: PCP Physician Assistant; Visit Provider Physician Assistant
DX: Z00.00 Encounter for general adult medical examination without abnormal findings (principal); F17.210 Nicotine dependence, cigarettes, uncomplicated; E21.3 Hyperparathyroidism, unspecified; H40.3 Glaucoma secondary to eye trauma; F41.1 Generalized anxiety disorder; F33.1 Major depressive disorder, recurrent, moderate
CPT/HCPCS: 96127; 99396

== ENCOUNTER 2024-04-04 15:10 | Outpatient (REF) | payer OTHER, SELFPAY ==
--- NOTE | ~2024-04-04 | MM_ITS ---
EXAMINATION: MM SCREENING DIGITAL BREAST TOMOSYNTHESIS, BILATERAL CLINICAL INFORMATION: Screening. Asymptomatic. COMPARISON: Mammography: Comparison is made with available priors TECHNIQUE: Digital breast mammography with tomosynthesis is performed in both the craniocaudal and mediolateral oblique views along with computer-aided detection (CAD). FINDINGS: The breasts are extremely dense, which lowers the sensitivity of mammography (ACR BI-RADS breast composition Category d). Bilateral circumscribed oval masses which wax and wane consistent with benign cysts and fibrocystic changes. Some simple cysts were seen on prior ultrasound images. There are no significant masses, abnormal calcifications, or other abnormalities. MM/MM tomosynthesis screening BI IMPRESSION: No mammographic evidence of malignancy. ASSESSMENT: BI-RADS BI-RADS 2 - Benign Findings RECOMMENDATION: Routine annual mammography screening. 1 year F/U This examination should not preclude the clinical evaluation of a suspicious palpable abnormality. This patient's information was entered into a reminder system with a target due date for their next mammogram. Electronically signed by: Luanne Mendieta DO 04/17/2024 08:37 AM EDT
== END 2024-04-04 15:11 | disposition home or self-care (01) ==
LOC: HO.MAMMO 15:10
PROVIDERS: Absent Provider Obstetrics & Gynecology; PCP Physician Assistant; Visit Provider Physician Assistant
DX: Z12.31 Encounter for screening mammogram for malignant neoplasm of breast (principal)
CPT/HCPCS: 77063; 77067

== ENCOUNTER → 2024-04-04 15:12 | Outpatient (BNV) | payer OTHER, SELFPAY | PROVIDERS: Absent Provider Obstetrics & Gynecology; PCP Physician Assistant; Visit Provider Internal Medicine | DX: Z12.31 Encounter for screening mammogram for malignant neoplasm of breast (principal) | CPT/HCPCS: 77063; 77067 ==

== ENCOUNTER 2024-04-23 08:27 | Outpatient (AMB) | payer OTHER, SELFPAY ==
--- NOTE | 2024-04-23 08:30 | A.OFFVIS_ITS ---
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 No complaints. Last Pap/HPV was negative in 04/04 Last Mammogram was BI-RADS 2 in 04/08 [facility] Medical History Migraines Thyroid eye disease Hyperparathyroidism Postoperative hypothyroidism Vitamin D deficiency Goiter Benign breast cyst in female Surgical History Hx of thyroidectomy Hx of tonsillectomy Family History Father No problems noted. 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 Cognitive needs: No Hearing needs: No Vision needs: No Female Reproductive History Menstrual Age of Menarche: 12 Date of last menstrual period: 04/12/24 control method: progestin IUCD Total pregnancies: 2 Number of Living Children: 0 Ab spontaneous: 2 Date of last pap smear: 03/18/20 Date of Mammogram: 04/04/24 Review of Systems Const All systems reviewed & are unremarkable except as noted in HPI and below Card Reports as per HPI Resp Reports as per HPI GI Reports as per HPI and Reports no additional complaints Reports as per HPI Physical Exam Vital Signs: Last Vital Signs BP 112/80 04/23/24 08:34 BMI result Body Mass Index 29.8 Const General: cooperative, healthy appearing and comfortable Chest Chest palpation & inspection: normal inspection of the chest and normal palpation of entire chest wall Breast/axilla inspection: normal inspection of the breasts and normal inspection of the axillae Breast/axilla palpation: normal palpation of the breasts, normal palpation of the axillae and no axillary lymphadenopathy Resp Effort & Inspection: normal respiratory effort Auscultation: clear to auscultation bilaterally Percussion: percussion normal Cardio Palpation: normal PMI Rate: regular rate Rhythm: regular rhythm Heart sounds: no murmurs and no rubs Peripheral pulses: Peripheral pulses 2+ throughout GI Inspection: Yes normal to inspection Palpation (GI): Soft to palpation, nontender, no guarding, not rigid and No hepatosplenomegaly present Percussion: Yes normal to percussion Auscultation: normal bowel sounds Rectal Exam - Female: deferred General: Yes bladder normal to palpation External Female Exam: No lesion Speculum Exam - Vagina: normal appearance of the vagina, normal palpation, normal vaginal discharge and not erythematous Speculum Exam - Cervix: normal appearance of the cervix and normal palpation Bimanual exam- vagina & uterus: normal bimanual exam, normal palpation, uterine size normal, bladder normal to palpation, consistency normal and normal palpation Bimanual Exam- Adnexa, other: normal adnexae, no masses and no tenderness Assessment & Plan Assessment & Plan (1) Well woman exam: Code(s): Z01.419 - Encounter for gynecological examination (general) (routine) without abnormal findings Category: Medical Plan: Cotesting not indicated this year. Instructions given to patient to schedule next screening Mammogram in 04/08. Counseled the patient about the recommended dietary allowance of 1000 mg of Calcium & 600 IU of vitamin D, the patient can not have a high intake of calcium ). The patient was instructed to perform monthly self-breast exams and to schedule an annual exam in a year; All questions answered and the patient verbalized understanding. Instructed the patient to schedule annual exam in a year Coding Level of Care Code Est Pt Prev Care 40-64y(75769) Diagnoses Well woman exam Z01.419
[2024-04-23 08:34] VITALS: BP 112/80; BMI 29.8
== END 2024-04-23 09:02 | disposition home or self-care (01) ==
PROVIDERS: PCP Physician Assistant; Visit Provider Obstetrics & Gynecology
DX: Z01.419 Encounter for gynecological examination (general) (routine) without abnormal findings (principal)
CPT/HCPCS: 99396

== ENCOUNTER → 2024-04-23 08:27 | Outpatient (BNVA) | payer OTHER, SELFPAY | PROVIDERS: PCP Physician Assistant; Visit Provider Obstetrics & Gynecology ==

== ENCOUNTER 2024-05-07 15:28 | Outpatient (AMB) | payer OTHER, SELFPAY ==
--- NOTE | 2024-05-07 15:26 | A.OFFPC_ITS ---
Intake Visit Reasons: f/u Emotions Production Support Consultant Required: No Information Interpreted: non-clinical & clinical Analytical Tech: Not Required per policy Accompanied by: Self / Same As Patient Allergies levothyroxine sodium [From Levoxyl] Allergy (Severe, Verified 05/07/24 15:52) Eye Swelling acetaminophen [From TYLENOL] Allergy (Unknown, Verified 05/07/24 15:52) GETS A HEADACHE levothyroxine Adverse Reaction (Intermediate, Verified 05/07/24 15:52) Hives Medication List - Last Reconciled 05/07/24 by Oskar Garcia PA-C cholecalciferol (vitamin D3) 50 mcg PO DAILY levonorgestrel (Mirena) intrauterine sertraline 50 mg PO DAILY 30 days sumatriptan succinate take 1 tab at onset of headache; if no relief, may repeat 1 tab after at least 2 hrs; max = 2 tabs/24 hrs PO 30 days Synthroid (levothyroxine) 1 tab 6 days per week, half a tab 1 day per week orally daily; 30 days NS Tobacco use date assessed: 03/26/24 Dental Screening Dental Screen Date: 09/17/23 HPI f/u Emotions HPI Details Patient is a 39-year-old female being evaluated today via telephone. At last visit we discussed patient's emotions and mood swings. She was willing to start SSRI therapy( sertraline 50 mg) to help her with her mood. She reports her mood is much improved on the SSRI therapy. She has not been able to cry thus would like a lower dose of the Zoloft at 25 mg. Unfortunately she still smokes and is interested in restarting generic Chantix to help her quit smoking as it has helped her in the past though insurance did not cover continued medication. [facility] Medical History Migraines Thyroid eye disease Hyperparathyroidism Postoperative hypothyroidism Vitamin D deficiency Goiter Benign breast cyst in female Surgical History Hx of thyroidectomy Hx of tonsillectomy Family History Father No problems noted. 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 Storm Wesley, Denise Lim, Hi Askew and colleagues, with an educational dori from [employer]. Review of Systems Const Denies body aches, Denies chills, Denies excessive sweating, Denies fatigue, Denies fever(s) and Denies headache(s) Eyes Denies blurry vision ENT Denies dysphagia, Denies vertigo, Denies dizziness, Denies headache(s), Denies hearing loss and Denies tinnitus Card Denies chest pain, Denies chest pain with activity, Denies syncope, Denies irregular heart rhythm and Denies dyspnea Resp Denies chest congestion, Denies cough, Denies hemoptysis, Denies dyspnea and Denies wheezing GI Denies abdominal pain, Denies melena, Denies hematochezia, Denies coffee ground emesis, Denies dysphagia, Denies diarrhea, Denies nausea and Denies vomiting Denies urinary frequency, Denies dysuria, Denies urinary hesitancy and Denies urinary urgency Musc Denies arthralgias, Denies limited range of motion, Denies muscle cramps and Denies muscle weakness Skin/Breast Denies rash and Denies skin ulcer Neuro Denies vertigo, Denies dizziness, Denies syncope, Denies headache(s), Denies memory loss and Denies seizure-like activity Psych Denies anxiety, Denies depression, Denies memory loss, Denies panic attacks and Denies paranoia Endo Denies excessive sweating, Denies fatigue, Denies flushing, Denies polydipsia and Denies polyuria Aller/Immun Denies wheezing Physical exam (Primary Care) Tobacco/Smoking Status: Tobacco use Status Tobacco use date assessed 03/26/24 05/07/24 15:27 Patient Tobacco Use Status Current everyday Tobacco 05/07/24 15:27 Tobacco use type Cigarette 05/07/24 15:27 e-Cigarette/Vaping Use Never Used 05/07/24 15:27 Are you ready to quit: Yes Tobacco cessation counseling provided: Yes Items discussed: Nicotine replacement Relapse Prevention: discussed the importance of a supportive environment, discussed negative mood or depression after quitting, weight gain after smoking is common and discussed dietary, exercise and/or lifestyle changes Number of minutes spent counselin CPT code: 41967 - 4-10 Minutes Thrive Assessment: Date of Thrive Assessment Date Thrive assessed 03/26/24 05/07/24 15:27 Telehealth Telehealth Telehealth Platform: Telephone Location of provider rendering services: practice address Location of patient: address on file Patient Identification confirmed using: Name, : Yes Telehealth method: voice only Patient verbally consented to treatment: Yes Patient verbally consented to billing insurance company: Yes Patient informed of any privacy concerns related to visit: Yes Minutes spent on Phone/Video with Pt.: 11 Coding Level of Care Code Tele Est Pt Level 3 (16248) Diagnoses MDD (major depressive disorder), recurrent episode, moderate F33.1 Tobacco dependence F17.200 Additional Codes Vital Signs *Quality* - CPT code: 98104 - 4-10 Minutes ([id number]) Assessment & Plan Assessment & Plan (1) MDD (major depressive disorder), recurrent episode, moderate: Code(s): F33.1 - Major depressive disorder, recurrent, moderate Category: Medical Plan: Patient does report significant relief of her depression and mood swings with starting sertraline. She would like to be on the lower dose of sertraline at 25 mg. Will send in script for this. Will continue long-term use of SSRI for patient's mood. (2) Tobacco dependence: Code(s): F17.200 - Nicotine dependence, unspecified, uncomplicated Category: Medical Plan: Patient continues to smoke and to is very motivated to stop smoking. She reports generic Chantix helped her quit smoking in the past. She would like a new script for generic Chantix. Medications: New sertraline 25 mg PO DAILY 90 tabs 1RF 90 days F33.1 - Major depressive disorder, recurrent, moderate varenicline 1 mg PO BID 56 tabs 3RF 28 days F17.200 - Nicotine dependence, unspecified, uncomplicated varenicline 0.5 mg PO; Take 0.5 mg qd x 3 days, then 0.5 mg b.i.d. x4 days 11 tabs 0RF 7 days F17.200 - Nicotine dependence, unspecified, uncomplicated Discontinued sertraline Discontinued Reason: Doctor's Order 50 mg PO DAILY 30 days 30 tabs 1RF F41.1 - Generalized anxiety disorder
== END 2024-05-07 16:09 | disposition home or self-care (01) ==
LOC: HO.HMCH 15:28
PROVIDERS: PCP Physician Assistant; Visit Provider Physician Assistant
DX: F33.1 Major depressive disorder, recurrent, moderate (principal); F17.200 Nicotine dependence, unspecified, uncomplicated

== ENCOUNTER → 2024-05-07 15:28 | Outpatient (BNVA) | payer OTHER, SELFPAY | PROVIDERS: PCP Physician Assistant; Visit Provider Physician Assistant ==

== ENCOUNTER 2024-09-19 06:05 | Outpatient (REF) | payer OTHER, SELFPAY ==
[2024-09-19 07:55] LABS: Hematocrit 42.1 % (37.0-47.0); Hemoglobin 13.8 g/dl (12.0-16.0); Mean Corpuscular HGB Conc 32.8 g/dl (31.0-35.0); Mean Corpuscular Volume 85.6 fL (80.0-98.0); Mean Platelet Volume 11.9 fL (9.4-12.3); Platelet Count 249 X10*3/uL (160-400); Red Blood Count 4.92 X10*6/uL (4.20-5.50); Red Cell Distribution Width 12.6 % (11.0-16.0); White Blood Count 4.8 X10*3/uL (4.8-10.8)
[2024-09-19 08:07] LABS: Parathyroid Hormone Intact 70.4 pg/mL (8.7-77.1)
[2024-09-19 08:16] LABS: Alanine Aminotransferase 28 U/L (0-31); Albumin Level 4.2 g/dL (3.5-5.0); Alkaline Phosphatase 62 U/L (39-117); Anion Gap 11 (12-20); Aspartate Amino Transferase 29 U/L (5-31); Bilirubin Total 0.3 mg/dL (0.0-1.0); Blood Urea Nitrogen 7 mg/dL (9-16); Calcium 8.8 mg/dL (8.4-10.2); Carbon Dioxide 25 mmol/L (22-29); Chloride 107 mmol/L (96-108); Estimated Glomerular Filt Rate > 60; Glucose Fasting 81 mg/dL (60-99); Potassium 3.9 mmol/L (3.3-5.1); Sodium 139 mmol/L (135-145); Total Protein 7.1 g/dL (6.5-8.0)
[2024-09-19 08:32] LABS: TSH reflex Free T4 2.39 uIU/mL (0.32-4.0)
== END 2024-09-19 06:06 | disposition home or self-care (01) ==
LOC: HO.LAB 06:05
PROVIDERS: PCP Physician Assistant; Visit Provider Physician Assistant
DX: Z13.1 Encounter for screening for diabetes mellitus (principal); E03.9 Hypothyroidism, unspecified; E21.3 Hyperparathyroidism, unspecified
CPT/HCPCS: 36415; 80053; 83970; 84443; 85027

== ENCOUNTER 2024-09-23 15:43 | Outpatient (AMB) | payer OTHER, SELFPAY ==
[2024-09-23 15:44] VITALS: BP 118/80; PULSE 81; O2SAT 96; BMI 31.3
--- NOTE | 2024-09-23 15:44 | MHC.PC.OV ---
Vital Signs 09/23/24 15:44 Height 4 ft 11 in Weight 155 lb BMI 31.3 BP 118/80 Blood Pressure Location Lt brachial Position Sitting Pulse 81 Pulse Source Pulse Oximeter Pulse Oximetry (%) 96 Oxygen Delivery Method Room Air Intake Visit Reasons: f/u hypothyroid Institute Director Required: No Accompanied by: Self / Same As Patient Allergies levothyroxine sodium [From Levoxyl] Allergy (Severe, Verified 09/23/24 16:11) Eye Swelling acetaminophen [From TYLENOL] Allergy (Unknown, Verified 09/23/24 16:11) GETS A HEADACHE levothyroxine Adverse Reaction (Intermediate, Verified 09/23/24 16:11) Hives Medication List - Last Reconciled 09/23/24 by Oskar Garcia PA-C cholecalciferol (vitamin D3) 50 mcg PO DAILY levonorgestrel (Mirena) intrauterine sertraline 25 mg PO DAILY 90 days sumatriptan succinate take 1 tab at onset of headache; if no relief, may repeat 1 tab after at least 2 hrs; max = 2 tabs/24 hrs PO 30 days Synthroid (levothyroxine) 1 tab 6 days per week, half a tab 1 day per week orally daily; 30 days NS varenicline tartrate 1 mg PO BID 28 days varenicline tartrate 0.5 mg PO; Take 0.5 mg qd x 3 days, then 0.5 mg b.i.d. x4 days 7 days Tobacco use date assessed: 09/23/24 Dental Screening Dental Screen Date: 09/23/24 Did you have a dental visit in the last 12 months?: Yes Did you have a dental problem in the last 6 months where you did not have access to dental care?: No Was dental information given to patient?: Patient has dentist HPI f/u hypothyroid HPI Details Patient is a 39-year-old female here today for follow-up visit.? The patient has a past medical history significant for Graves disease, anxiety, vitamin-D deficiency. Concern--> patient reports having a red flushed face and wonders if she has rosacea. .. Anxiety: Patient continues on sertraline 25 mg which has been offering her excellent relief of her anxiety and mood swings. Tobacco dependency: Unfortunately has started smoking again and is interested in quitting again, has been successful with generic Chantix has been very helpful on helping her quit smoking. Unfortunately had to be off of it for a few weeks due to insurance coverage. \ Hypothyroidism: Patient has been seen by Endocrinology and endocrine surgeon and had a total thyroidectomy.? Most recent TSH has normalized since the use of Synthroid.? Seem to have an allergy to generic levothyroxine. 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 [facility] Medical History Migraines Thyroid eye disease Hyperparathyroidism Postoperative hypothyroidism Vitamin D deficiency Goiter Benign breast cyst in female Surgical History Hx of thyroidectomy Hx of tonsillectomy Family History Father No problems noted. 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 1. Little interest or pleasure in doing things: several days 2. Feeling down, depressed, or hopeless: several days 3. Trouble falling or staying asleep, or sleeping too much: several days 4. Feeling tired or having little energy: several days 5. Poor appetite or overeating: not at all 6. Feeling bad about yourself - or that you are a failure or have let yourself or your family down: not at all 7. Trouble concentrating on things, such as reading the newspaper or watching television: not at all 8. Moving or speaking so slowly that other people could have noticed. Or the opposite - being so fidgety or restless that you have been moving around a lot more than usual: not at all 9. Thoughts that you would be better off or of hurting yourself in some way: not at all Total score: 4 Depression Screening Interpretation: Negative Depression Screening Done: Yes 22093 - PHQ-9 Billing: Yes Source: Developed by Drs. Storm eWsley, Denise Lim, Hi Askew and colleagues, with an educational dori from [employer]. Thrive Questionnaire Date Thrive assessed: 09/23/24 I am a: Patient What is your living situation today?: I have a steady place to live Within the past 12 months, did the food you bought not last and you didn't have the money to get more?: Never true Within the past 12 months, did you worry whether your food would run out before you got money to buy more?: Never true Do you have trouble paying for medicines?: Yes Do you have trouble getting transportation to medical appointments?: No Do you have trouble paying your heating and electricity bill?: No Do you have trouble taking care of your child, family member or friend?: No Do you have trouble with day-to-day activities such as bathing, preparing meals, shopping, managing finances, etc.?: No Are you currently unemployed and looking for a job?: No Are you interested in more education?: No Please select the resources that you would like help with: None Currently or been in a relationship where the following occur: No concerns reported THRIVE Score: 0 AUDIT C Alcohol Use Questionnaire (AUDIT-C) 1. How often do you have a drink containing alcohol?: Monthly or less 2. How many drinks containing alcohol do you have on a typical day when you are drinking?: 1 or 2 3. How often do you have six or more drinks on one occasion?: Never Total Score: 1 GRACY-7 AMB Questionnaire GRACY-7 Date GRACY - 7 assessed: 09/23/24 Feeling nervous, anxious, or on edge: 1 = Several days Not being able to stop or control worryin = Not at all Worrying too much about different things: 1 = Several days Trouble relaxin = Not at all Being so restless that it is hard to sit still: 0 = Not at all Becoming easily annoyed or irritable: 0 = Not at all Feeling afraid as if something awful might happen: 0 = Not at all Total GRACY-7 score (0-4 normal; 5-9 mild; 10-14 moderate; 15-21 severe): 2 Source: Developed by Drs. Storm Wesley, Denise Lim, Hi Askew and colleagues, with an educational dori from [employer]. GRACY-7 Assessment Billing GRACY-7 Assessment Tool: GRACY-7 Assessment 34275 Review of Systems Const Denies headache(s) Eyes Denies loss of vision ENT Denies vertigo, Denies dizziness, Denies headache(s) and Denies sore throat Card Denies chest pain, Denies leg edema and Denies lightheadedness Resp Denies cough, Denies hemoptysis and Denies wheezing GI Denies abdominal pain, Denies melena, Denies constipation, Denies diarrhea and Denies vomiting Denies urinary frequency, Denies dysuria and Denies urinary urgency Musc Denies arthralgias, Denies joint swelling, Denies numbness and Denies tingling Neuro Denies Abnormal speech present, Denies behavioral changes, Denies vertigo, Denies dizziness, Denies headache(s), Denies loss of vision, Denies memory loss, Denies numbness and Denies tingling Psych Denies anxiety, Denies behavioral changes, Denies depression, Denies memory loss and Denies panic attacks Daryl/Lymph Denies easy bleeding and Denies easy bruising Aller/Immun Denies wheezing Physical exam (Primary Care) Vital Signs: Last Vital Signs Pulse 81 09/23/24 15:44 BP 118/80 09/23/24 15:44 Pulse Ox 96 09/23/24 15:44 Oxygen Delivery Method Room Air 09/23/24 15:44 BMI result Body Mass Index 31.3 Tobacco/Smoking Status: Tobacco use Status Tobacco use date assessed 09/23/24 09/23/24 15:50 Patient Tobacco Use Status Current everyday Tobacco 09/23/24 15:50 Tobacco use type Cigarette 09/23/24 15:50 e-Cigarette/Vaping Use Never Used 09/23/24 15:50 Are you ready to quit: Yes Tobacco cessation counseling provided: Yes Items discussed: Nicotine replacement Relapse Prevention: discussed the importance of a supportive environment, discussed negative mood or depression after quitting, weight gain after smoking is common and discussed dietary, exercise and/or lifestyle changes Number of minutes spent counselin CPT code: 58275 - 4-10 Minutes PHQ-9: PHQ-9 Score PHQ-9: Total score 4 09/23/24 16:12 Depression Screening Interpretation: Negative Thrive Assessment: Date of Thrive Assessment Date Thrive assessed 09/23/24 09/23/24 15:50 Currently or been in a relationship where the following occur: No concerns reported Const General: healthy appearing, no acute distress, alert and awake Nutritional Appearance: well nourished Orientation/consciousness: oriented to person, oriented to place and oriented to time HENMT Ears: TM's normal bilaterally General nose exam: Normal nasal mucous membranes and turbinates present Eyes Conjunctivae: conjunctivae normal Sclerae: sclerae normal Pupils: Equal, round and reactive pupils present Neck Neck: Yes no lymphadenopathy and Yes no JVD Thyroid: Thyroid normal Carotids: no bruits Resp Effort & Inspection: normal respiratory effort and not tachypneic Auscultation: no crackles, no rales, no rhonchi and no wheezes Cardio Rate: regular rate Rhythm: regular rhythm Heart sounds: no murmurs and normal S1 and S2 GI Palpation (GI): Soft to palpation, nontender, no hepatomegaly and no splenomegaly Auscultation: normal bowel sounds Skin General skin exam: no rashes or lesions noted and dry skin Neuro General: oriented to person, oriented to place and oriented to time Cranial nerves: Yes Equal, round and reactive pupils present Speech: No Abnormal speech present Gait exam (Neuro): Normal gait present Motor exam (neuro): no tremor noted Extrem Right upper extremity: full ROM Left upper extremity: full ROM Right lower extremity: full ROM; no edema Left lower extremity: full ROM; no edema Psych Mental Status: mental status grossly normal Speech and movement: Normal speech and movement present Affect: normal affect Attitude: cooperative Thought process: Normal thought process present Coding Level of Care Code Est Pt Level 4 (69620) Diagnoses MDD (major depressive disorder), recurrent episode, moderate F33.1 Tobacco dependence F17.200 Hypothyroidism, unspecified type E03.9 Hypothyroidism type: unspecified Rosacea L71.9 Additional Codes PHQ-9 - 27601 - PHQ-9 Billing: Yes ([id number]) GRACY-7 Assessment Billing - GRACY-7 Assessment Tool: GRACY-7 Assessment 36767 ([id number]) Vital Signs *Quality* - CPT code: 43019 - 4-10 Minutes ([id number]) Assessment & Plan Assessment & Plan (1) MDD (major depressive disorder), recurrent episode, moderate: Code(s): F33.1 - Major depressive disorder, recurrent, moderate Category: Medical Plan: Patient does report significant relief of her depression and mood swings with starting sertraline. She would like to be on the lower dose of sertraline at 25 mg. Will send in script for this. Will continue long-term use of SSRI for patient's mood. (2) Tobacco dependence: Code(s): F17.200 - Nicotine dependence, unspecified, uncomplicated Category: Medical Plan: Patient continues to smoke and to is very motivated to stop smoking. She reports generic Chantix helped her quit smoking in the past. She is going to try Chantix again to help her quit smoking. (3) Hypothyroid: Code(s): E03.9 - Hypothyroidism, unspecified Category: Medical Qualifiers: Hypothyroidism type: unspecified Qualified Code(s): E03.9 - Hypothyroidism, unspecified Plan: Patient's most recent TSH stable. Will continue her current dose of levothyroxine. (4) Rosacea: Code(s): L71.9 - Rosacea, unspecified Category: Medical Plan: Patient appears to have had flushed face and will try metronidazole gel. If treatment fails will consider Dermatology evaluation and treatment. Orders: Orders Comprehensive [place]. Panel Fast 09/23/24 E03.9 - Hypothyroidism, unspecified TSH reflex Free T4 09/23/24 E03.9 - Hypothyroidism, unspecified Medications: New metronidazole 1% 1 appl topical BID 60 grams 0RF 30 days L71.9 - Rosacea, unspecified Discontinued varenicline tartrate Discontinued Reason: Doctor's Order 0.5 mg PO; Take 0.5 mg qd x 3 days, then 0.5 mg b.i.d. x4 days 7 days 11 tabs 0RF F17.200 - Nicotine dependence, unspecified, uncomplicated
== END 2024-09-23 16:28 | disposition home or self-care (01) ==
LOC: HO.HMCH 15:43
PROVIDERS: PCP Physician Assistant; Visit Provider Physician Assistant
DX: F33.1 Major depressive disorder, recurrent, moderate (principal); F17.200 Nicotine dependence, unspecified, uncomplicated; E03.9 Hypothyroidism, unspecified; L71.9 Rosacea, unspecified

== ENCOUNTER → 2024-09-23 15:43 | Outpatient (BNVA) | payer OTHER, SELFPAY | PROVIDERS: PCP Physician Assistant; Visit Provider Physician Assistant | DX: F33.1 Major depressive disorder, recurrent, moderate (principal); E03.9 Hypothyroidism, unspecified; L71.9 Rosacea, unspecified; Z79.899 Other long term (current) drug therapy; F17.210 Nicotine dependence, cigarettes, uncomplicated | CPT/HCPCS: 96127 ==

== ENCOUNTER 2025-04-01 13:18 | Outpatient (AMB) | payer OTHER, SELFPAY ==
--- NOTE | 2025-04-01 13:25 | MHC.PC.OV ---
Vital Signs 04/01/25 13:26 Height 4 ft 11 in Weight 159 lb 2 oz BMI 32.1 BP 120/80 Blood Pressure Location Lt brachial Position Sitting Pulse 92 Pulse Source Pulse Oximeter Temp 97.3 F Temp Source Temporal Artery Scan Pulse Oximetry (%) 95 Oxygen Delivery Method Room Air Intake Visit Reasons: Annual exam Intake Note: Patient is here today for a physical. Dough Maker Required: No Agricultural Plow Operator: Not Required per policy Accompanied by: Self / Same As Patient Allergies levothyroxine sodium (From Levoxyl) Allergy (Severe, Verified 04/01/25 13:50) Eye Swelling acetaminophen (From TYLENOL) Allergy (Unknown, Verified 04/01/25 13:50) GETS A HEADACHE levothyroxine Adverse Reaction (Intermediate, Verified 04/01/25 13:50) Hives metronidazole (From Metrogel) Adverse Reaction (Intermediate, Verified 04/01/25 13:58) SKin breakout Medication List - Last Reconciled 04/01/25 by Oskar Garcia PA-C cholecalciferol (vitamin D3) 50 mcg PO DAILY levonorgestrel (Mirena) intrauterine sertraline 25 mg PO DAILY 90 days sumatriptan succinate take 1 tab at onset of headache; if no relief, may repeat 1 tab after at least 2 hrs; max = 2 tabs/24 hrs PO 30 days Synthroid (levothyroxine) 1 tab 6 days per week, half a tab 1 day per week orally daily; 30 days NS varenicline tartrate 1 mg PO BID 28 days Tobacco use date assessed: 04/01/25 Dental Screening Dental Screen Date: 09/23/24 [facility] Annual exam HPI Details Patient is a 40-year-old female here today for routine annual physical.? The patient has a past medical history significant for Graves disease, anxiety, vitamin-D deficiency. Concern--> . The patient reports a history of rosacea, for which she was prescribed Metrogel. She experienced adverse reactions to the gel, including significant skin breakouts, and has discontinued its use. Alternative treatments such as azelaic acid are being considered Also Tosin has been experiencing persistent fatigue for the past one to two weeks, which is affecting her daily activities. She denies any respiratory symptoms or sleep disturbances, except for occasional snoring when consuming alcohol. Her menstrual periods are irregular due to an IUD, but she reports a significant reduction in menstrual flow compared to before the IUD placement. The patient is also dealing with a grief reaction following the recent of her grandmother, with whom she was very close. She acknowledges the emotional toll this has taken on her and is open to counseling to help manage her grief. .. Anxiety: Patient continues on sertraline 25 mg which has been offering her excellent relief of her anxiety and mood swings. Tobacco dependency: Unfortunately has started smoking again and is interested in quitting again, has been successful with generic Chantix has been very helpful on helping her quit smoking. Unfortunately had to be off of it for a few weeks due to insurance coverage. \ Hypothyroidism: Patient has been seen by Endocrinology and endocrine surgeon and had a total thyroidectomy.? Most recent TSH has normalized since the use of Synthroid.? Seem to have an allergy to generic levothyroxine. 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 Vaccines:? Up-to-date with Pfizer vaccine, up-to-date with tetanus, considering flu vacc .. Mammo: Mammogram done in March 2024, BI-RADS 1, needs repeat mammo .. 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 1. Little interest or pleasure in doing things: not at all 2. Feeling down, depressed, or hopeless: not at all 3. Trouble falling or staying asleep, or sleeping too much: nearly every day 4. Feeling tired or having little energy: nearly every day 5. Poor appetite or overeating: not at all 6. Feeling bad about yourself - or that you are a failure or have let yourself or your family down: not at all 7. Trouble concentrating on things, such as reading the newspaper or watching television: not at all 8. Moving or speaking so slowly that other people could have noticed. Or the opposite - being so fidgety or restless that you have been moving around a lot more than usual: not at all 9. Thoughts that you would be better off or of hurting yourself in some way: not at all Total score: 6 Depression Screening Interpretation: Positive Depression Screening Follow-up: Existing condition and Follow-up Visit Requested Depression Screening Done: Yes 74039 - PHQ-9 Billing: Yes Source: Developed by Drs. Storm Wesley, Denise Lim, Hi Askew and colleagues, with an educational dori from [employer]. Thrive Questionnaire Date Thrive assessed: 03/25/25 I am a: Patient What is your living situation today?: I have a steady place to live Within the past 12 months, did the food you bought not last and you didn't have the money to get more?: Never true Within the past 12 months, did you worry whether your food would run out before you got money to buy more?: Never true Do you have trouble paying for medicines?: No Do you have trouble getting transportation to medical appointments?: No Do you have trouble paying your heating and electricity bill?: No Do you have trouble taking care of your child, family member or friend?: No Do you have trouble with day-to-day activities such as bathing, preparing meals, shopping, managing finances, etc.?: No Are you currently unemployed and looking for a job?: No Are you interested in more education?: No Please select the resources that you would like help with: None Currently or been in a relationship where the following occur: No concerns reported THRIVE Score: 0 AUDIT C Alcohol Use Questionnaire (AUDIT-C) 1. How often do you have a drink containing alcohol?: Monthly or less Total Score: 1 GRACY-7 AMB Questionnaire GRACY-7 Date GRACY - 7 assessed: 09/23/24 Feeling nervous, anxious, or on edge: 1 = Several days Not being able to stop or control worryin = Several days Worrying too much about different things: 1 = Several days Trouble relaxin = Several days Being so restless that it is hard to sit still: 0 = Not at all Becoming easily annoyed or irritable: 1 = Several days Feeling afraid as if something awful might happen: 0 = Not at all Total GRACY-7 score (0-4 normal; 5-9 mild; 10-14 moderate; 15-21 severe): 5 Source: Developed by Drs. Storm Wesley, Denise Lim, Hi Askew and colleagues, with an educational dori from [employer]. GRACY-7 Assessment Billing GRACY-7 Assessment Tool: GRACY-7 Assessment 53235 Physical exam (Primary Care) Vital Signs: Last Vital Signs Temp 97.3 F 04/01/25 13:26 Pulse 92 04/01/25 13:26 BP 120/80 04/01/25 13:26 Pulse Ox 95 04/01/25 13:26 Oxygen Delivery Method Room Air 04/01/25 13:26 BMI result Body Mass Index 32.1 Tobacco/Smoking Status: Tobacco use Status Tobacco use date assessed 04/01/25 04/01/25 13:33 Patient Tobacco Use Status Current everyday Tobacco 04/01/25 13:32 Tobacco use type Cigarette 04/01/25 13:32 e-Cigarette/Vaping Use Never Used 04/01/25 13:32 PHQ-9: PHQ-9 Score PHQ-9: Total score 6 04/01/25 13:48 Depression Screening Interpretation: Positive Depression Screening Follow-up: Existing condition and Follow-up Visit Requested Thrive Assessment: Date of Thrive Assessment Date Thrive assessed 03/25/25 04/01/25 13:25 Currently or been in a relationship where the following occur: No concerns reported Coding Level of Care Code Est Pt Level 4 (93378) Diagnoses Annual physical exam Z00.00 MDD (major depressive disorder), recurrent episode, moderate F33.1 Tobacco dependence F17.200 Hypothyroidism, unspecified type E03.9 Hypothyroidism type: unspecified Rosacea L71.9 Fatigue, unspecified type R53.83 Fatigue type: unspecified Additional Codes PHQ-9 - 70635 - PHQ-9 Billing: Yes ([id number]) GRACY-7 Assessment Billing - GRACY-7 Assessment Tool: GRACY-7 Assessment 07870 ([id number]) Assessment & Plan Assessment & Plan (1) Annual physical exam: Code(s): Z00.00 - Encounter for general adult medical examination without abnormal findings Category: Medical Plan: As per HPI (2) MDD (major depressive disorder), recurrent episode, moderate: Code(s): F33.1 - Major depressive disorder, recurrent, moderate Category: Medical Plan: PHQ-9 score positive for depression which has been existing condition for her.. Of she reports losing her grandmother recently she was close to. She continues on sertraline 25 mg which has been working well for her over the past 6 months.. She reports her grandmother recently in his dealing with a bit of grief which may be causing some of the fatigue. She is interested in speaking with a mental health therapist (3) Tobacco dependence: Code(s): F17.200 - Nicotine dependence, unspecified, uncomplicated Category: Medical Plan: Unfortunately smoking nearly a pack a day again, she reports her grandmother in now smoking a bit more. She is interested in returning back to [facility] which has helped her quit smoking in the past. (4) Hypothyroid: Code(s): E03.9 - Hypothyroidism, unspecified Category: Medical Qualifiers: Hypothyroidism type: unspecified Qualified Code(s): E03.9 - Hypothyroidism, unspecified Plan: Patient's most recent TSH stable. Will continue her current dose of levothyroxine. (5) Rosacea: Code(s): L71.9 - Rosacea, unspecified Category: Medical Plan: Due to adverse reactions to Metrogel, alternative treatments such as azelaic acid are being considered. A referral to a returning officer is suggested if symptoms persist. (6) Fatigue: Code(s): R53.83 - Other fatigue Category: Medical Qualifiers: Fatigue type: unspecified Qualified Code(s): R53.83 - Other fatigue Plan: Laboratory tests are ordered to assess thyroid function, vitamin levels, and iron status to identify potential causes of fatigue. Counseling is recommended to address potential emotional factors contributing to fatigue. Orders: Orders Vitamin B12 and Folate 04/01/25 E53.8 - Deficiency of other specified B group vitamins, R53.83 - Other fatigue Vitamin D 25-OH Total 04/01/25 R53.83 - Other fatigue MM screening mammo BI 04/01/25 Z12.31 - Encounter for screening mammogram for malignant neoplasm of breast Lipid Panel 04/01/25 E03.9 - Hypothyroidism, unspecified, F17.200 - Nicotine dependence, unspecified, uncomplicated Referrals Counseling Referral F33.1 - Major depressive disorder, recurrent, moderate Medications: New azelaic acid 15% 1 appl topical BID 50 grams 0RF 6 weeks L71.9 - Rosacea, unspecified Refilled varenicline tartrate 1 mg PO BID 56 tabs 3RF 28 days F17.200 - Nicotine dependence, unspecified, uncomplicated
[2025-04-01 13:26] VITALS: BP 120/80; PULSE 92; TEMP 36.3; O2SAT 95; BMI 32.1
== END 2025-04-01 14:28 | disposition home or self-care (01) ==
LOC: HO.HMCH 13:19
PROVIDERS: PCP Physician Assistant; Visit Provider Physician Assistant
DX: Z00.00 Encounter for general adult medical examination without abnormal findings (principal); F33.1 Major depressive disorder, recurrent, moderate; F17.200 Nicotine dependence, unspecified, uncomplicated; E03.9 Hypothyroidism, unspecified; L71.9 Rosacea, unspecified; R53.83 Other fatigue

== ENCOUNTER → 2025-04-01 13:18 | Outpatient (BNVA) | payer OTHER, SELFPAY | PROVIDERS: PCP Physician Assistant; Visit Provider Physician Assistant | DX: Z00.00 Encounter for general adult medical examination without abnormal findings (principal); F41.9 Anxiety disorder, unspecified; E03.9 Hypothyroidism, unspecified; F17.210 Nicotine dependence, cigarettes, uncomplicated; F33.1 Major depressive disorder, recurrent, moderate; L71.9 Rosacea, unspecified; E53.8 Deficiency of other specified B group vitamins; Z63.4 Disappearance and death of family member | CPT/HCPCS: 96127 ==

== ENCOUNTER 2025-04-04 07:02 | Outpatient (REF) | payer OTHER, SELFPAY ==
[2025-04-04 09:14] LABS: Alanine Aminotransferase 20 U/L (0-31); Albumin Level 4.8 g/dL (3.5-5.0); Alkaline Phosphatase 60 U/L (39-117); Anion Gap 10 (12-20); Aspartate Amino Transferase 20 U/L (5-31); Blood Urea Nitrogen 10 mg/dL (9-16); Calcium 8.8 mg/dL (8.4-10.2); Carbon Dioxide 26 mmol/L (22-29); Chloride 109 mmol/L (96-108); Cholesterol 199 mg/dL (<200); Estimated Glomerular Filt Rate > 60; HDL Cholesterol 48 mg/dL (>40); Potassium 4.2 mmol/L (3.3-5.1); Sodium 141 mmol/L (135-145); Total Protein 7.2 g/dL (6.5-8.0); Triglycerides 128 mg/dL (<150)
[2025-04-04 09:33] LABS: Folate 5.5 ng/mL (> or = 4.0); Vitamin B12 221 pg/mL (200-900)
[2025-04-04 10:12] LABS: Free T4 (Free Thyroxine) 0.88 ng/dL (0.71-1.85)
== END 2025-04-04 07:03 | disposition home or self-care (01) ==
LOC: HO.LAB 07:02
PROVIDERS: PCP Physician Assistant; Visit Provider Physician Assistant
DX: E53.8 Deficiency of other specified B group vitamins (principal); E03.9 Hypothyroidism, unspecified; F17.200 Nicotine dependence, unspecified, uncomplicated; R53.83 Other fatigue
CPT/HCPCS: 36415; 80053; 80061; 82306; 82607; 82746; 84439; 84443

== ENCOUNTER 2025-04-10 13:19 | Outpatient (REF) | payer OTHER, SELFPAY ==
--- NOTE | ~2025-04-10 | MM_ITS ---
EXAMINATION: MM SCREENING DIGITAL BREAST TOMOSYNTHESIS, BILATERAL CLINICAL INFORMATION: Screening. Asymptomatic. COMPARISON: Mammography: Comparison is made with available priors TECHNIQUE: Digital breast mammography with tomosynthesis is performed in both the craniocaudal and mediolateral oblique views along with computer-aided detection (CAD). FINDINGS: The breasts are extremely dense, which lowers the sensitivity of mammography. Bilateral circumscribed oval masses which wax and wane consistent with benign fibrocystic changes. There are no significant masses, abnormal calcifications, or other abnormalities. MM/MM tomosynthesis screening BI IMPRESSION: No mammographic evidence of malignancy. ASSESSMENT: BI-RADS Category 2: Benign RECOMMENDATION: Routine annual mammography screening. 1 year F/U This examination should not preclude the clinical evaluation of a suspicious palpable abnormality. This patient's information was entered into a reminder system with a target due date for their next mammogram. Electronically signed by: Luanne Mendieta DO 04/14/2025 10:08 AM EDT
== END 2025-04-10 13:20 | disposition home or self-care (01) ==
LOC: HO.MAMMO 13:19
PROVIDERS: PCP Physician Assistant; Visit Provider Physician Assistant
DX: Z12.31 Encounter for screening mammogram for malignant neoplasm of breast (principal)
CPT/HCPCS: 77063; 77067

== ENCOUNTER → 2025-04-10 13:30 | Outpatient (BNV) | payer OTHER, SELFPAY | PROVIDERS: PCP Physician Assistant; Visit Provider Internal Medicine | DX: Z12.31 Encounter for screening mammogram for malignant neoplasm of breast (principal) | CPT/HCPCS: 77063; 77067 ==

== ENCOUNTER 2025-05-27 09:13 | Outpatient (REF) | payer OTHER, SELFPAY | END 2025-05-27 09:14 | disposition home or self-care (01) | LOC: HO.LAB 09:13 | PROVIDERS: PCP Physician Assistant; Visit Provider Physician Assistant | DX: E03.9 Hypothyroidism, unspecified (principal) | CPT/HCPCS: 36415; 84443 ==